=== PATIENT | female | born 1985 | race Caucasian/White ===

== ENCOUNTER 2020-03-23 23:42 | Emergency (ER) | payer SELFPAY ==
[2020-03-24 01:00] LABS: Absolute Lymphocytes (CBC) 1.2 K/uL (0.7-4.9); Basophils % 0.3 % (0-1.3); Hematocrit 41.7 % (36.0-45.0); RBC Red Blood Cell Count 4.77 M/uL (3.86-4.86)
[2020-03-24] MEDS ORDERED: ONDANSETRON 4 MG/2 ML VIAL ONE (01:04)
[2020-03-24] MEDS ORDERED: NA CHLORIDE 0.9% 1,000 ML ONE (01:04)
[2020-03-24 01:11] LABS: Urine Blood 2+ (NEG); Urine Glucose NEGATIVE (NEG); Urine Protein NEGATIVE (NEG); Urine Specific Gravity >1.030 (1.005-1.030); Urine pH 5.5 (5.0-7.0)
[2020-03-24 01:38] LABS: BUN Blood Urea Nitrogen 9 mg/dL (7-18); Bicarbonate 28 mmol/L (21-32); Glucose Level 122 mg/dL (74-106); HCG, Quantitative 5574 mIU/mL (1-3); Potassium 3.7 mmol/L (3.5-5.1); Sodium Level 138 mmol/L (136-145)
--- NOTE | 2020-03-24 02:18 | EDPHYS ---
Physician Documentation [facility] Name: Patito De La Rosa Age: 34 yrs Sex: Female : 1985 Arrival Date: 03/23/2020 Time: 23:44 Bed 5 Private MD: ED Physician Yoel Moran HPI: 03/24 00:50 This 34 yrs old Female presents to ER via Ambulatory with complaints of pkl Abdominal Pain, Vomiting. 00:50 The patient presents with pelvic pain, vaginal bleeding that is with clots. Onset: The pkl symptoms/episode began/occurred 4 day(s) ago. Patient said her menstrual periods came about 10 days early . HAND STEMMER: 00:17 LMP 03/24/2020 sg 00:50 2, Full Term 0, Premature 0, 1, Living 0, LMP 03/20/2020 pkl Historical: - Allergies: 00:17 Benadryl; sg 00:17 benitez flavor; sg 00:17 Iodine; sg 00:17 Latex, Natural Rubber; sg 00:17 PENICILLINS; sg 00:17 SHELLFISH; sg - Home Meds: 00:30 None [Active]; lp1 - PMHx: 00:17 Migraines; sg - PSHx: 00:17 None; sg - Immunization history:: Adult Immunizations up to date. - Social history:: Smoking status: Patient denies any tobacco usage or history of. ROS: 00:50 Positive for pelvic pain, vaginal bleeding. pkl 00:50 Eyes: Negative for injury, pain, redness, and discharge, ENT: Negative for injury, pain, and discharge, Neck: Negative for injury, pain, and swelling, Cardiovascular: Negative for chest pain, palpitations, and edema, Respiratory: Negative for shortness of breath, cough, wheezing, and pleuritic chest pain. 00:50 Abdomen/GI: Positive for abdominal pain, of the right lower quadrant and left lower quadrant. 00:50 Back: Negative for acute changes. 00:50 MS/extremity: Negative for acute changes. 00:50 Skin: Negative for rash. 00:50 Neuro: Negative for altered mental status. Exam: 02:10 Head/Face: Normocephalic, atraumatic. Eyes: Pupils equal round and reactive to light, pkl extra-ocular motions intact. Lids and lashes normal. Conjunctiva and sclera are non-icteric and not injected. Cornea within normal limits. Periorbital areas with no swelling, redness, or edema. ENT: Nares patent. No nasal discharge, no septal abnormalities noted. Tympanic membranes are normal and external auditory canals are clear. Oropharynx with no redness, swelling, or masses, exudates, or evidence of obstruction, uvula midline. Mucous membranes moist. Neck: Trachea midline, no thyromegaly or masses palpated, and no cervical lymphadenopathy. Supple, full range of motion without nuchal rigidity, or vertebral point tenderness. No Meningismus. Chest/axilla: Normal chest wall appearance and motion. Nontender with no deformity. No lesions are appreciated. Cardiovascular: Regular rate and rhythm with a normal S1 and S2. No gallops, murmurs, or rubs. Normal PMI, no JVD. No pulse deficits. Respiratory: Lungs have equal breath sounds bilaterally, clear to auscultation and percussion. No rales, rhonchi or wheezes noted. No increased work of breathing, no retractions or nasal flaring. Abdomen/GI: Soft, non-tender, with normal bowel sounds. No distension or tympany. No guarding or rebound. No evidence of tenderness throughout. Back: No spinal tenderness. No costovertebral tenderness. Full range of motion. Skin: Warm, dry with normal turgor. Normal color with no rashes, no lesions, and no evidence of cellulitis. MS/ Extremity: Pulses equal, no cyanosis. Neurovascular intact. Full, normal range of motion. Neuro: Awake and alert, GCS 15, oriented to person, place, time, and situation. Cranial nerves II-XII grossly intact. Motor strength 5/5 in all extremities. Sensory grossly intact. Cerebellar exam normal. Normal gait. 02:10 : Pelvic Exam: Speculum exam: scant bleeding, os that is open, the nurse was present for the exam. Vital Signs: 00:17 BP 120 / 90; Pulse 77; Resp 18; Temp 97.9; Pulse Ox 100% on R/A; sg 00:51 Weight 72.57 kg (R); Height 5 ft. 11 in. (180.34 cm); lp1 01:24 BP 111 / 70; Pulse 55; Resp 16; Pulse Ox 100% on R/A; ea 02:17 BP 126 / 83; Pulse 60; Resp 18; Pulse Ox 99% ; ea 00:51 Body Mass Index 22.32 (72.57 kg, 180.34 cm) lp1 MDM: 00:11 Patient medically screened. pkl 02:10 Data reviewed: vital signs, nurses notes. ED course: Discussed lab. and US results with pkl patient. Advised to follow up with Ob-Performance Analyst. in 2 to 3 days.. To return if necessary. Patient understood instructions. 03/24 00:17 Order name: Urine Dipstick--Ancillary (enter results); Complete Time: :56 sg 03/24 00:17 Order name: Urine --Ancillary (enter results); Complete Time: :56 sg 03/24 00:33 Order name: Quantitative Hcg; Complete Time: :56 lp1 03/24 00:33 Order name: Abo/rh Typing; Complete Time: 01:56 lp1 03/24 00:33 Order name: Basic Metabolic Panel; Complete Time: :56 lp1 03/24 00:33 Order name: CBC with Diff; Complete Time: :56 lp1 03/24 00:33 Order name: IV Saline Lock; Complete Time: 00:34 lp1 03/24 00:33 Order name: Labs collected and sent; Complete Time: 00:34 lp1 03/24 00:33 Order name: NPO; Complete Time: 00:34 lp1 03/24 00:33 Order name: US Transvaginal Ob lp1 Administered Medications: 01:03 Drug: NS 0.9% 500 ml Volume: 500 ml; Route: IV; Rate: 1 bolus; Site: right antecubital; ea 02:18 Follow up: Response: No adverse reaction; IV Status: Completed infusion; IV Intake: ea 500ml 02:25 Follow up: Response: No adverse reaction; IV Status: Completed infusion; IV Intake: ea 500ml 01:04 Drug: NS 0.9% 1000 ml Route: IV; Rate: 100 ml/hr; Site: right antecubital; ea 02:25 Follow up: Response: No adverse reaction; IV Status: Completed infusion; IV Intake: ea 100ml 01:04 Drug: Zofran (Ondansetron) 4 mg Route: IVP; Site: right antecubital; ea 02:18 Follow up: Response: No adverse reaction ea Disposition: 03/24/20 02:17 Discharged to Home. Impression: 1 st trimester . Vaginal bleeding. - Condition is Stable. - Work release form, Medication Reconciliation Form, Thank You Letter, Antibiotic Education, Prescription Opioid Use form. - Follow up: Private Physician; When: 2 - 3 days; Reason: Re-evaluation by your physician. - Problem is new. - Symptoms have improved. Signatures: Dispatcher [employer] EDNikos Oneal RN RN Yoel Kim MD MD pkl Keyona Mendez RN RN lp1 April Dominguez RN RN ea Corrections: (The following items were deleted from the chart) 02:25 02:17 03/24/2020 02:17 Discharged to Home. Impression: 1 st trimester . ea Vaginal bleeding. Condition is Stable. Forms are Medication Reconciliation Form, Thank You Letter, Antibiotic Education, Prescription Opioid Use. Follow up: Private Physician; When: 2 - 3 days; Reason: Re-evaluation by your physician. Problem is new. Symptoms have improved. pkl
--- NOTE | 2020-03-24 02:18 | ER ---
Nurse's Notes [facility] Name: Patito De La Rosa Age: 34 yrs Sex: Female : 1985 Arrival Date: 03/23/2020 Time: 23:44 Bed 5 Private MD: Diagnosis: 1 st trimester . Vaginal bleeding Presentation: 03/24 00:15 Chief complaint: Patient states: Abd pain and nausea and vomiting, denies sg FEVER/DIARRHEA, reports worsening symptoms today, also reports having vaginal bleeding, reports menstruating a week earlier than normal, with heavy flow. Coronavirus screen: Proceed with normal triage. Ebola Screen: Patient negative for fever greater than or equal to 101.5 degrees Fahrenheit, and additional compatible Ebola Virus Disease symptoms Patient denies exposure to infectious person. Patient denies travel to an Ebola-affected area in the 21 days before illness onset. No symptoms or risks identified at this time. Initial Sepsis Screen: Does the patient meet any 2 criteria? No. Patient's initial sepsis screen is negative. Does the patient have a suspected source of infection? No. Patient's initial sepsis screen is negative. Risk Assessment: Do you want to hurt yourself or someone else? Patient reports no desire to harm self or others. Onset of symptoms was March 24, 2020. Care prior to arrival: None. 00:15 Method Of Arrival: Ambulatory sg 00:15 Acuity: RYLEY 3 sg 00:26 Chief complaint: Patient states: Lower pelvic pain x 3 days with heavy vaginal bleeding lp1 with clots; States vomiting when pain is severe; States not normal for her menstrual cycle. Coronavirus screen: Proceed with normal triage. Ebola Screen: No symptoms or risks identified at this time. Initial Sepsis Screen: Does the patient meet any 2 criteria? No. Patient's initial sepsis screen is negative. Does the patient have a suspected source of infection? No. Patient's initial sepsis screen is negative. Risk Assessment: Do you want to hurt yourself or someone else? Patient reports no desire to harm self or others. Onset of symptoms was March 20, 2020. 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 - Social history:: Smoking status: Patient denies any tobacco usage or history of. Screenin:28 Abuse screen: Denies threats or abuse. Denies injuries from another. Nutritional lp1 screening: No deficits noted. Tuberculosis screening: No symptoms or risk factors identified. Fall Risk None identified. Assessment: 01:11 General: Appears in no apparent distress. Behavior is appropriate for age. Pain: ea Complains of pain in left lower quadrant and right lower quadrant. Neuro: Level of Consciousness is awake, alert, obeys commands, Oriented to person, place, time. Cardiovascular: Patient's skin is warm and dry. Respiratory: Airway is patent Respiratory effort is even, unlabored, Respiratory pattern is regular, symmetrical. GI: Abdomen is non-distended. Derm: Skin is pink, warm \T\ dry. 02:24 Reassessment: Patient and/or family updated on plan of care and expected duration. Pain ea level reassessed. Patient is alert, oriented x 3, equal unlabored respirations, skin warm/dry/pink. Discharge instruction given to patient, verbalized the understanding of instruction. Vital Signs: 00:17 BP 120 / 90; Pulse 77; Resp 18; Temp 97.9; Pulse Ox 100% on R/A; sg 00:51 Weight 72.57 kg (R); Height 5 ft. 11 in. (180.34 cm); lp1 01:24 BP 111 / 70; Pulse 55; Resp 16; Pulse Ox 100% on R/A; ea 02:17 BP 126 / 83; Pulse 60; Resp 18; Pulse Ox 99% ; ea 00:51 Body Mass Index 22.32 (72.57 kg, 180.34 cm) lp1 ED Course: 03/23 23:44 Patient arrived in ED. cf2 03/24 00:11 Yoel Moran MD is Attending Physician. pkl 00:15 Nikos Weaver, RN is Primary Nurse. sg 00:17 Arm band placed on. sg 00:28 Triage completed. lp1 00:30 Patient has correct armband on for positive identification. lp1 00:45 Inserted saline lock: 20 gauge in right antecubital area, using aseptic technique. lp1 Blood collected. 02:00 Assist provider with pelvic exam: Set up pelvic tray. Performed by Yoel Moran MD Patient lp1 tolerated well. 02:01 US Transvaginal Ob In Process Unspecified. EDMS 02:24 IV discontinued, intact, bleeding controlled, No redness/swelling at site. Pressure ea dressing applied. Administered Medications: 01:03 Drug: NS 0.9% 500 ml Volume: 500 ml; Route: IV; Rate: 1 bolus; Site: right antecubital; ea 02:18 Follow up: Response: No adverse reaction; IV Status: Completed infusion; IV Intake: ea 500ml 02:25 Follow up: Response: No adverse reaction; IV Status: Completed infusion; IV Intake: ea 500ml 01:04 Drug: NS 0.9% 1000 ml Route: IV; Rate: 100 ml/hr; Site: right antecubital; ea 02:25 Follow up: Response: No adverse reaction; IV Status: Completed infusion; IV Intake: ea 100ml 01:04 Drug: Zofran (Ondansetron) 4 mg Route: IVP; Site: right antecubital; ea 02:18 Follow up: Response: No adverse reaction ea Intake: 02:18 IV: 500ml; Total: 500ml. ea 02:25 IV: 100ml; Total: 600ml. ea 02:25 IV: 500ml; Total: 1100ml. ea Outcome: 02:17 Discharge ordered by . pkaundrea 02:24 Discharged to home ambulatory. ea 02:24 Condition: stable 02:24 Discharge instructions given to patient, Instructed on discharge instructions, follow up and referral plans. Demonstrated understanding of instructions, follow-up care. 02:25 Patient left the ED. ea Signatures: Dispatcher [employer] EDMS Nikos Weaver, RN Yoel Rodriguez MD MD pkl Pena, Laura, RN RN lp1 April Dominguez RN RN ea Frazier, Celesta 2 Corrections: (The following items were deleted from the chart) 00:38 00:15 Chief complaint: Patient states: Abd pain and nausea and vomiting, denies sg FEVER/DIARRHEA, reports worsening symptoms today sg
[2020-03-24 02:52] VITALS: TEMP 97.9
[2020-03-24 02:53] VITALS: BP 126/83; O2SAT 99
--- NOTE | 2020-03-24 17:23 | RAD REPORT ---
EXAM DESCRIPTION: US - Transvaginal OB - 03/24/2020 2:29 am CLINICAL HISTORY: The patient is 34 years old and is Female; VAGINAL BLEEDING TECHNIQUE: Real-time transvaginal obstetrical ultrasound of the maternal pelvis and a first trimeste r with image documentation. Transvaginal imaging was used for better evaluation of the fe tus and adnexa. COMPARISON: No relevant prior studies available. FINDINGS: GESTATION: There is no evidence of an intrauterine . PLACENTA/AMNIOTIC FLUID: Cannot be adequately evaluated due to the early gestational age. UTERUS/CERVIX: Unremarkable. No myometrial mass. OVARIES: Unremarkable. No mass. FREE FLUID: No free fluid. IMPRESSION: No evidence of an intrauterine . Findings suggest a of unknown locat ion. Recommend continued follow-up with serial hCG and ultrasound. Electronically signed by: Aparna Lynn MD 03/24/2020 3:01 AM CDT Due to temporary technical issues with the PACS/Fluency reporting system, reports are being signed by the in house radiologist as a courtesy to ensure prompt reporting. The interpreting radiologist is f ully responsible for the content of the report.
== END 2020-03-24 02:25 | disposition home or self-care (01) ==
LOC: ER 23:42
DX: O46.91 Antepartum hemorrhage, unspecified, first trimester (principal); Z3A.00 Weeks of gestation of pregnancy not specified; Z88.0 Allergy status to penicillin; Z91.02 Food additives allergy status; Z91.013 Allergy to seafood; Z91.040 Latex allergy status; Z91.048 Other nonmedicinal substance allergy status
CPT/HCPCS: 36415; 76817; 80048; 81003; 81025; 84702; 85025; 86900; 86901; 96361; 96374; 99284; J2405; J7030

== ENCOUNTER 2024-03-04 06:45 | Emergency (ER) | payer BC ==
[2024-03-04] MEDS ORDERED: ONDANSETRON 4 MG/2 ML VIAL ONE (07:27)
[2024-03-04] MEDS ORDERED: NA CHLORIDE 0.9% 1,000 ML ONE (07:28)
[2024-03-04] MEDS ORDERED: MORPHINE 4 MG/ML SYR ONE (07:28)
[2024-03-04 07:30] LABS: Absolute Eosinophils 0.2 K/uL (0-0.5); Absolute Lymphocytes (CBC) 1.9 K/uL (0.7-4.9); Absolute Monocytes 0.6 K/uL (0.1-1.3); Absolute Neutrophil 3.6 K/uL (1.8-8.0); Basophils % 0.5 % (0-1.3); Eosinophils % 3.2 % (0-4.4); Hematocrit 37.5 % (36.0-45.0); Hemoglobin 12.7 g/dL (12.0-15.0); Lymphocytes % 29.6 % (15.3-44.8); MCHC 33.9 g/dL (32.0-36.0); MCV 85.4 fL (80-100); Monocytes % 10.1 % (3.3-12.3); Neutrophils % 56.6 % (41.7-73.7); Nucleated Red Blood Cells % 0.1 % (0-0); Platelets 267 thou/uL (152-406); RBC Red Blood Cell Count 4.39 M/uL (3.86-4.86); Red Cell Distribution Width 12.9 % (12.1-15.2)
[2024-03-04 07:47] LABS: Albumin 3.5 g/dL (3.4-5.0); Albumin/Globulin Ratio 0.9 (1.1-1.8); Anion Gap 4.6 mEq/L (5.0-15.0); Bilirubin Total 0.2 mg/dL (0.2-1.0); Globulin 3.9 g/dL (2.3-3.5); Potassium 3.6 mEq/L (3.5-5.1); Protein, Total 7.4 g/dL (6.4-8.2)
[2024-03-04 07:56] LABS: Specific Gravity 1.023 (1.005-1.030)
[2024-03-04 07:57] LABS: Specific Gravity 1.023 (1.005-1.030); Sqamous Epithelial <5 /HPF (None Seen); Urine Bacteria <20 /HPF (<20); Urine Bilirubin NEGATIVE (Negative); Urine Blood 2+ (Negative); Urine Clarity Extremely Turbid (Clear); Urine Color Light-Yellow (Yellow); Urine Culture Reflex Order NOT NEEDED; Urine Glucose NEGATIVE (Negative); Urine Ketones NEGATIVE (Negative); Urine Microscopic Reflex YN ORDER UMIC; Urine Mucus 2+ /HPF (None Seen); Urine Nitrite NEGATIVE (Negative); Urine Protein NEGATIVE (Negative); Urine RBC 21-50 /HPF (None Seen); Urine Urobilinogen Normal (Normal); Urine WBC <5 /HPF (<5); Urine pH 6.5 (5.0-7.0)
--- NOTE | 2024-03-04 08:55 | RAD REPORT ---
EXAM DESCRIPTION: CT - Abdomen Pelvis Wo Contrast - 03/04/2024 8:00 am CLINICAL HISTORY: ABD PAIN COMPARISON: Abdomen Pelvis Wo Contrast dated 05/27/2016 TECHNIQUE: Thin cut axial CT imaging of the abdomen and pelvis was performed without IV contrast. Mu ltiplanar reformats were generated and reviewed. All CT scans are performed using dose optimization technique as appropriate and may include automated exposure control or mA/KV adjustment according to patient size. FINDINGS: No suspicious findings in the lung bases. The liver, spleen, adrenal glands, and pancreas show no suspicious findings. Gallbladder and biliary tree are also without suspicious finding. Symmetric renal contour, without suspicious parenchymal findings within limits of noncontrast techniq ue. No evidence of radiopaque calculi or hydroureteronephrosis. No dilated bowel loops or bowel wall thickening. No free air, free fluid or inflammatory stranding. N o hernia, mass or bulky lymphadenopathy. Uterus is retroverted. The urinary bladder is decompressed l imiting evaluation. No suspicious bony findings. IMPRESSION: No acute intra-abdominal process. Retroverted uterus.
--- NOTE | 2024-03-04 09:04 | EDPHYS ---
Physician Documentation [facility] Name: Patito Sims Age: 38 yrs Sex: Female : 1985 Arrival Date: 03/04/2024 Time: 06:45 Bed 5 Private MD: ED Physician Neema Foy HPI: 03/04 07:28 This 38 yrs old Female presents to ER via Ambulatory with complaints of Abdominal Pain, sp3 Constipation. 07:28 38-year-old female with a history of frequent UTIs, migraine headaches now presents to 3 the ED with chief complaint epigastric pain since late last night they got worse throughout the night. She has no past surgical history. She endorses vomiting multiple times especially this morning without blood or mucus. She denies diarrhea, potential bad food, back pain, flank pain, lower abdominal pain, BELT PRESS OPERATOR symptoms or any other signs or symptoms on ROS at this time.. Historical: - Allergies: 07:17 Benadryl; rs5 07:17 benitez flavor; rs5 07:17 Iodine; rs5 07:17 Latex; rs5 07:17 PENICILLINS; rs5 07:17 SHELLFISH; rs5 07:17 Latex, Natural Rubber; rs5 - PMHx: 07:17 Migraines; UTI (Migraines); rs5 - PSHx: 07:17 None; rs5 - Immunization history:: Adult Immunizations up to date. - Infectious Disease History:: Denies. - Social history:: Smoking status: Patient denies any tobacco usage or history of. ROS: 07:29 Constitutional: Negative for fever, chills, and weight loss, Eyes: Negative for injury, sp3 pain, redness, and discharge, ENT: Negative for injury, pain, and discharge, Neck: Negative for injury, pain, and swelling, Cardiovascular: Negative for chest pain, palpitations, and edema, Respiratory: Negative for shortness of breath, cough, wheezing, and pleuritic chest pain, Back: Negative for injury and pain, : Negative for injury, bleeding, discharge, and swelling, MS/Extremity: Negative for injury and deformity, Skin: Negative for injury, rash, and discoloration, Neuro: Negative for headache, weakness, numbness, tingling, and seizure, Psych: Negative for depression, anxiety, suicide ideation, homicidal ideation, and hallucinations, Allergy/Immunology: Negative for hives, rash, and allergies, Endocrine: Negative for neck swelling, polydipsia, polyuria, polyphagia, and marked weight changes, 07:29 All other systems are negative, Exam: 07:29 Constitutional: This is a well developed, well nourished patient who is awake, alert, sp3 and in no acute distress. Head/Face: Normocephalic, atraumatic. Eyes: Pupils equal round and reactive to light, extra-ocular motions intact. Lids and lashes normal. Conjunctiva and sclera are non-icteric and not injected. Cornea within normal limits. Periorbital areas with no swelling, redness, or edema. ENT: Nares patent. No nasal discharge, no septal abnormalities noted. External auditory canals are clear. Oropharynx with no redness, swelling, or masses, exudates, or evidence of obstruction, uvula midline. Mucous membranes moist. Neck: Trachea midline, no thyromegaly or masses palpated, and no cervical lymphadenopathy. Supple, full range of motion without nuchal rigidity, or vertebral point tenderness. No Meningismus. Chest/axilla: Normal chest wall appearance and motion. Nontender with no deformity. No lesions are appreciated. Cardiovascular: Regular rate and rhythm with a normal S1 and S2. No gallops, murmurs, or rubs. Normal PMI, no JVD. No pulse deficits. Respiratory: Lungs have equal breath sounds bilaterally, clear to auscultation and percussion. No rales, rhonchi or wheezes noted. No increased work of breathing, no retractions or nasal flaring. Back: No spinal tenderness. No costovertebral tenderness. Full range of motion. Skin: Warm, dry with normal turgor. Normal color with no rashes, no lesions, and no evidence of cellulitis. MS/ Extremity: Pulses equal, no cyanosis. Neurovascular intact. Full, normal range of motion. Neuro: Awake and alert, GCS 15, oriented to person, place, time, and situation. Cranial nerves II-XII grossly intact. Motor strength 5/5 in all extremities. Sensory grossly intact. Cerebellar exam normal. Normal gait. Psych: Awake, alert, with orientation to person, place and time. Behavior, mood, and affect are within normal limits. 07:29 Abdomen/GI: Pain epigastric region and right upper quadrant. No rebound or guarding or peritoneal signs noted., Vital Signs: 07:00 BP 133 / 87; Pulse 70; Resp 18; Temp 98(O); Pulse Ox 99% ; rs5 07:54 BP 140 / 91; Pulse 72; Resp 18; Pulse Ox 99% on R/A; rs5 09:20 BP 135 / 88; Pulse 75; Resp 18; Pulse Ox 99% on R/A; rs5 MDM: 07:10 Patient medically screened. sp3 07:29 Data reviewed: vital signs, nurses notes, old medical records, lab test result(s), sp3 radiologic studies. ED course: 38-year-old female with epigastric pain. Differential diagnosis includes biliary pathology, pancreatitis, gastritis, GERD, MSK, among others. I am not highly suspicious for ACS spectrum, vascular pathology, sepsis, shock or any other critical process at this time. Disposition pending workup and patient course. Workup will include CT scan of the abdomen pelvis, laboratory values, UA and pain and nausea control with morphine and Zofran.. 09:02 ED course: Full workup negative including CT scan of the abdomen pelvis. Will safely sp3 discharged home with diagnosis gastritis and OTC meds along with Zofran ODT.. 03/04 07:19 Order name: CBC with Diff; Complete Time: 07:59 sp3 03/04 07:19 Order name: CMP; Complete Time: 07:59 sp3 03/04 07:19 Order name: Lipase; Complete Time: 07:59 sp3 03/04 07:19 Order name: Test, Urine; Complete Time: 07:59 sp3 03/04 07:19 Order name: Urinalysis w/ reflexes; Complete Time: 07:59 sp3 03/04 07:58 Order name: Abdomen ; Complete Time: 09:00 EDMS 03/04 07:19 Order name: IV Saline Lock; Complete Time: 07:45 sp3 03/04 07:19 Order name: Labs collected and sent; Complete Time: 07:45 sp3 Administered Medications: 07:25 Drug: NS 0.9% IV 1000 ml IV at 1 bolus Per protocol; 1000 mL bolus Route: IV; Rate: 1 rs5 bolus; Site: left antecubital; 09:00 Follow up: Response: No adverse reaction; IV Status: Completed infusion rs5 07:25 Drug: Ondansetron IVP 4 mg IVP once; over 2 minutes Route: IVP; Site: left antecubital; rs5 08:00 Follow up: Response: No adverse reaction rs5 07:30 Drug: morphine IVP or IV 4 mg IVP once over 4 mins Route: IVP; Infused Over: 4 mins; rs5 Site: left antecubital; 08:00 Follow up: Response: No adverse reaction; Pain is decreased rs5 09:10 Drug: morphine IVP or IV 2 mg IVP once over 4 mins Route: IVP; Infused Over: 4 mins; rs5 Site: left antecubital; 09:22 Follow up: Response: No adverse reaction; Pain is decreased rs5 Disposition Summary: 03/04/24 09:03 Discharge Ordered Notes: Location: Home sp3 Condition: Stable sp3 Diagnosis - Gastritis, abdominal pain sp3 Followup: sp3 - With: Private Physician - When: Upon discharge from the Emergency Department - Reason: Continuance of care Discharge Instructions: - Discharge Summary Sheet sp3 - Abdominal Pain, Adult sp3 Forms: - Medication Reconciliation Form sp3 - Thank You Letter sp3 - Antibiotic Education sp3 - Prescription Opioid Use sp3 - Patient Portal Instructions sp3 - Leadership Thank You Letter sp3 Prescriptions: - Zofran 4 mg Oral Tablet - take 1 tablet ORAL route every 12 hours As needed; 20 tablet; Refills: 0, sp3 Product Selection Permitted Signatures: Dispatcher [employer] EDMS Neema Foy MD MD sp3 Ezequiel Travis RN RN rs5 Corrections: (The following items were deleted from the chart) 07:58 07:19 Abdomen Pelvis W Con+CT.[id number].[id number] ordered. EDMS EDMS
--- NOTE | 2024-03-04 09:04 | ER ---
Nurse's Notes [facility] Name: Patito Sims Age: 38 yrs Sex: Female : 1985 Arrival Date: 03/04/2024 Time: 06:45 Bed 5 Private MD: Diagnosis: Gastritis, abdominal pain Presentation: 03/04 07:00 Chief complaint: Patient states: Abdominal pain started yesterday morning unrelieved by rs5 tums. 07:00 Coronavirus screen: At this time, the client does not indicate any symptoms associated rs5 with coronavirus-19. Ebola Screen: No symptoms or risks identified at this time. Initial Sepsis Screen: Does the patient meet any 2 criteria? No. Patient's initial sepsis screen is negative. Does the patient have a suspected source of infection? No. Patient's initial sepsis screen is negative. Risk Assessment: Do you want to hurt yourself or someone else? Patient reports no desire to harm self or others. Onset of symptoms was March 04, 2024. 07:00 Method Of Arrival: Ambulatory rs5 07:00 Acuity: RYLEY 3 rs5 Historical: - Allergies: 07:17 Benadryl; rs5 07:17 benitez flavor; rs5 07:17 Iodine; rs5 07:17 Latex; rs5 07:17 PENICILLINS; rs5 07:17 SHELLFISH; rs5 07:17 Latex, Natural Rubber; rs5 - PMHx: 07:17 Migraines; UTI (Migraines); rs5 - PSHx: 07:17 None; rs5 - Immunization history:: Adult Immunizations up to date. - Infectious Disease History:: Denies. - Social history:: Smoking status: Patient denies any tobacco usage or history of. Screenin:58 [facility] ED Fall Risk Assessment (Adult) History of falling in the last 3 months, rs5 including since admission No falls in past 3 months (0 pts) Confusion or Disorientation No (0 pts) Intoxicated or Sedated No (0 pts) Impaired Gait No (0 pts) Mobility Assist Device Used No (0 pt) Altered Elimination No (0 pt) Score/Fall Risk Level 0 - 2 = Low Risk Oriented to surroundings, Maintained a safe environment. 06:58 Abuse screen: Denies threats or abuse. Nutritional screening: No deficits noted. rs5 Tuberculosis screening: No symptoms or risk factors identified. Assessment: 06:58 General: Appears in no apparent distress. uncomfortable, Behavior is calm, cooperative. rs5 06:58 Pain: Complains of pain in abdomen Pain currently is 7 out of 10 on a pain scale. rs5 Quality of pain is described as aching, Is continuous. Neuro: Level of Consciousness is awake, alert, obeys commands, Oriented to person, place, time, situation. Cardiovascular: Patient's skin is warm and dry. Rhythm is regular. Respiratory: Airway is patent Respiratory effort is even, unlabored, Respiratory pattern is regular, symmetrical. GI: Abdomen is round non-distended, Bowel sounds present X 4 quads. Abd is soft and non tender X 4 quads. Reports nausea. : No signs and/or symptoms were reported regarding the genitourinary system. EENT: No signs and/or symptoms were reported regarding the EENT system. Derm: Skin is intact, Skin is pink, warm \T\ dry. Musculoskeletal: Range of motion: intact in all extremities. 08:05 Reassessment: Patient and/or family updated on plan of care and expected duration. Pain rs5 level reassessed. Patient is alert, oriented x 3, equal unlabored respirations, skin warm/dry/pink. Patient denies pain at this time. Patient states feeling better. Patient states symptoms have improved. 09:00 Pain: Complains of pain in abdomen Pain currently is 7 out of 10 on a pain scale. rs5 Quality of pain is described as aching, Is continuous. 09:00 Respiratory: Respiratory effort is even, unlabored, Respiratory pattern is regular, rs5 symmetrical. 09:01 Reassessment: Provider notified pt is experiencing pain . rs5 Vital Signs: 07:00 BP 133 / 87; Pulse 70; Resp 18; Temp 98(O); Pulse Ox 99% ; rs5 07:54 BP 140 / 91; Pulse 72; Resp 18; Pulse Ox 99% on R/A; rs5 09:20 BP 135 / 88; Pulse 75; Resp 18; Pulse Ox 99% on R/A; rs5 ED Course: 06:50 Patient arrived in ED. jj6 06:58 Patient has correct armband on for positive identification. Placed in gown. Bed in low rs5 position. Call light in reach. Side rails up X2. 06:58 No provider procedures requiring assistance completed. rs5 07:02 Ezequiel Travis, RN is Primary Nurse. rs5 07:09 Neema Foy MD is Attending Physician. sp3 07:17 Triage completed. rs5 07:58 Abdomen In Process Unspecified. EDMS 09:20 IV discontinued, intact, bleeding controlled, No redness/swelling at site. Pressure rs5 dressing applied. Administered Medications: 07:25 Drug: NS 0.9% IV 1000 ml IV at 1 bolus Per protocol; 1000 mL bolus Route: IV; Rate: 1 rs5 bolus; Site: left antecubital; 09:00 Follow up: Response: No adverse reaction; IV Status: Completed infusion rs5 07:25 Drug: Ondansetron IVP 4 mg IVP once; over 2 minutes Route: IVP; Site: left antecubital; rs5 08:00 Follow up: Response: No adverse reaction rs5 07:30 Drug: morphine IVP or IV 4 mg IVP once over 4 mins Route: IVP; Infused Over: 4 mins; rs5 Site: left antecubital; 08:00 Follow up: Response: No adverse reaction; Pain is decreased rs5 09:10 Drug: morphine IVP or IV 2 mg IVP once over 4 mins Route: IVP; Infused Over: 4 mins; rs5 Site: left antecubital; 09:22 Follow up: Response: No adverse reaction; Pain is decreased rs5 Medication: 07:54 VIS not applicable for this client. rs5 Outcome: 09:03 Discharge ordered by . sp3 09:20 Discharged to home ambulatory, rs5 09:20 Condition: stable 09:20 Discharge instructions given to patient, family, Instructed on discharge instructions, follow up and referral plans. medication usage, Demonstrated understanding of instructions, follow-up care, medications, Prescriptions given X 1, 09:22 Patient left the ED. rs5 Signatures: Dispatcher [employer] EDMS Neema Foy MD MD sp3 Myesha Colvinj6 Ezequiel Travis, RN RN rs5 Corrections: (The following items were deleted from the chart) 09:42 08:00 Response: No adverse reaction; Pain is decreased rs5 rs5
[2024-03-04] MEDS ORDERED: MORPHINE 2 MG/ML SYR ONE (09:12)
[2024-03-04 11:08] VITALS: BP 140/91; TEMP 98; O2SAT 99
== END 2024-03-04 09:22 | disposition home or self-care (01) ==
LOC: ER 06:45
DX: K29.70 Gastritis, unspecified, without bleeding (principal); Z88.0 Allergy status to penicillin; Z88.8 Allergy status to other drugs, medicaments and biological substances; Z91.02 Food additives allergy status; Z91.013 Allergy to seafood; Z91.040 Latex allergy status
CPT/HCPCS: 96361; 85025; 81001; 36415; 81025; 83690; 80053; 74176; 96375; 96374; 99284; J2270; J2405; J7030

== ENCOUNTER 2024-03-06 12:41 | Inpatient (IN) | payer BC ==
[2024-03-06] MEDS ORDERED: FAMOTIDINE 20 MG/2 ML VIAL IV ONE (14:33)
[2024-03-06] MEDS ORDERED: LIDOCAINE VISCOUS 2% 10ML ORAL SOLN ONE (14:33)
[2024-03-06] MEDS ORDERED: MAGNES/ALUMIN/SIMET 30ML UCUP ONE (14:33)
[2024-03-06] MEDS ORDERED: NA CHLORIDE 0.9% 1,000 ML ONE (14:33)
[2024-03-06 14:59] LABS: Absolute Lymphocytes (CBC) 1.3 K/uL (0.7-4.9); Absolute Monocytes 1.6 K/uL (0.1-1.3); Absolute Neutrophil 12.1 K/uL (1.8-8.0); Basophils % 0.3 % (0-1.3); Eosinophils % 0.2 % (0-4.4); Hematocrit 39.7 % (36.0-45.0); Hemoglobin 12.9 g/dL (12.0-15.0); Lymphocytes % 8.7 % (15.3-44.8); MCH 28.2 pg (27.0-35.0); MCHC 32.4 g/dL (32.0-36.0); MCV 87.1 fL (80-100); MPV 7.5 fL (7.6-11.3); Monocytes % 10.7 % (3.3-12.3); Neutrophils % 80.1 % (41.7-73.7); Platelets 250 thou/uL (152-406); RBC Red Blood Cell Count 4.56 M/uL (3.86-4.86); Red Cell Distribution Width 13.3 % (12.1-15.2)
[2024-03-06 15:05] LABS: Specific Gravity 1.016 (1.005-1.030); Sqamous Epithelial <5 /HPF (None Seen); Urine Bacteria <20 /HPF (<20); Urine Bilirubin NEGATIVE (Negative); Urine Blood 3+ (Negative); Urine Clarity Extremely Turbid (Clear); Urine Color Yellow (Yellow); Urine Culture Reflex Order NOT NEEDED; Urine Glucose NEGATIVE (Negative); Urine Ketones 2+ (Negative); Urine Microscopic Reflex YN ORDER UMIC; Urine Mucus 4+ /HPF (None Seen); Urine Nitrite NEGATIVE (Negative); Urine Protein 1+ (Negative); Urine RBC 21-50 /HPF (None Seen); Urine Urobilinogen Normal (Normal); Urine WBC <5 /HPF (<5); Urine pH 6.5 (5.0-7.0)
[2024-03-06 15:14] LABS: Anion Gap 5.6 mEq/L (5.0-15.0); Potassium 3.6 mEq/L (3.5-5.1)
[2024-03-06] MEDS ORDERED: ONDANSETRON 4 MG/2 ML VIAL ONE (15:26)
[2024-03-06] MEDS ORDERED: MORPHINE 4 MG/ML SYR ONE (15:26)
[2024-03-06 15:42] LABS: Albumin 3.8 g/dL (3.4-5.0); Albumin/Globulin Ratio 0.9 (1.1-1.8); Bilirubin Direct 0.2 mg/dL (0-0.2); Bilirubin Indirect, Calculated 0.4 mg/dL (0.2-0.8); Bilirubin Total 0.6 mg/dL (0.2-1.0); Globulin 4.4 g/dL (2.3-3.5); Protein, Total 8.2 g/dL (6.4-8.2)
--- NOTE | 2024-03-06 16:18 | RAD REPORT ---
EXAM DESCRIPTION: US - Abdomen Exam Limited - 03/06/2024 3:52 pm CLINICAL HISTORY: epigastric/RUQ pain;Abd pain COMPARISON: Abdomen Pelvis Wo Contrast dated 03/04/2024 FINDINGS: Cholelithiasis present. Gallbladder wall thickening. Pericholecystic edema. Positive sonog raphic Hood sign. Common bile duct measures 5 millimeters which is within normal limits. The liver demonstrates no findings of intrahepatic biliary dilatation. IMPRESSION: Sonographic findings compatible with acute calculus cholecystitis. Common bile duct is n ormal caliber.
[2024-03-06] MEDS ORDERED: PROMETHAZINE INJ 25 MG/ML AMP ONE (16:54)
[2024-03-06] MEDS ORDERED: HYDROMORPHONE HCL 0.5 MG/0.5 ML INJ ONE (16:54)
[2024-03-06] MEDS ORDERED: METRONIDAZOLE 500mg IVPB 500 MG/100 ML BAG IV ONE (16:55)
[2024-03-06] MEDS ORDERED: CIPROFLOXACIN 400mg IV 400 MG/200 ML BAG IV ONE (16:55)
--- NOTE | 2024-03-06 17:03 | ER ---
Nurse's Notes [facility] Name: Patito Sims Age: 38 yrs Sex: Female : 1985 Arrival Date: 03/06/2024 Time: 12:41 Bed 9 Private MD: Diagnosis: Acute cholecystitis Presentation: 03/06 12:49 Chief complaint: Patient states: Still having severe abdominal pain since Thursday. ll1 Liquid diarrhea started yesterday. No fever. Coronavirus screen: Client denies travel out of the [place] in the last 14 days. At this time, the client does not indicate any symptoms associated with coronavirus-19. Ebola Screen: Patient denies travel to an Ebola-affected area in the 21 days before illness onset. Initial Sepsis Screen: Does the patient meet any 2 criteria? No. Patient's initial sepsis screen is negative. Does the patient have a suspected source of infection? No. Patient's initial sepsis screen is negative. Risk Assessment: Do you want to hurt yourself or someone else? Patient reports no desire to harm self or others. Onset of symptoms was March 04, 2024. 12:49 Method Of Arrival: Ambulatory ll1 12:49 Acuity: RYLEY 3 ll1 Triage Assessment: 12:52 General: Appears uncomfortable, Behavior is calm, cooperative, appropriate for age. ll1 Pain: Complains of pain in abdomen Pain currently is 9 out of 10 on a pain scale. Quality of pain is described as aching, heavy. GI: Reports lower abdominal pain, upper abdominal pain, diarrhea, no appetite. Historical: - Allergies: 12:49 Benadryl; ll1 12:49 benitez flavor; ll1 12:49 Iodine; ll1 12:49 Latex; ll1 12:49 PENICILLINS; ll1 12:49 SHELLFISH; ll1 - PMHx: 12:49 Migraines; UTI (Migraines); ll1 - Immunization history:: Adult Immunizations up to date. - Infectious Disease History:: Denies. Screenin:58 [facility] ED Fall Risk Assessment (Adult) History of falling in the last 3 months, ld2 including since admission No falls in past 3 months (0 pts) Confusion or Disorientation No (0 pts) Intoxicated or Sedated No (0 pts) Impaired Gait No (0 pts) Mobility Assist Device Used No (0 pt) Altered Elimination No (0 pt) Score/Fall Risk Level 0 - 2 = Low Risk Oriented to surroundings, Maintained a safe environment, Educated pt \T\ family on fall prevention, incl call for assistance when getting out of bed, Assessed \T\ reinforced patient's understanding of fall precautions, Provided non-skid footwear, Hourly rounding (assess needs \T\ fall precautionary measures) done, Used ambulatory aids as needed (educated on \T\ assisted with). Abuse screen: Denies threats or abuse. Denies injuries from another. Nutritional screening: No deficits noted. Tuberculosis screening: No symptoms or risk factors identified. Assessment: 14:55 Pain: Complains of pain in abdomen Pain currently is 10 out of 10 on a pain scale. ld2 Quality of pain is described as burning, crampy, Pain began 2-3 days ago. Is intermittent. Neuro: No deficits noted. Level of Consciousness is awake, alert, obeys commands, Oriented to person, place, time, situation. Cardiovascular: No deficits noted. Denies chest pain, Heart tones S1 S2 present Capillary refill < 3 seconds in bilateral fingers. Respiratory: Breath sounds are clear bilaterally. Denies shortness of breath. GI: Abdomen is flat, non-distended, Bowel sounds present X 4 quads. Abd is soft and non tender X 4 quads. Reports cramping, nausea, vomiting. : No deficits noted. No signs and/or symptoms were reported regarding the genitourinary system. Musculoskeletal: No deficits noted. No signs and/or symptoms reported regarding the musculoskeletal system. Vital Signs: 12:49 BP 131 / 90; Pulse 113; Resp 16; Temp 97.6; Pulse Ox 100% ; Weight 95.25 kg; Height 5 ll1 ft. 11 in. ; Pain 9/10; 15:32 BP 123 / 87; Pulse 89; Resp 18; Pulse Ox 100% on R/A; Pain 3/10; ld2 17:08 BP 126 / 84; Pulse 95; Resp 20; Pulse Ox 99% on R/A; Pain 1/10; ld2 12:49 Body Mass Index 29.29 (95.25 kg, 180.34 cm) ll1 12:49 Pain Scale: Adult ll1 15:32 Pain Scale: Adult ld2 17:08 Pain Scale: Adult ld2 [place] Coma Score: 15:32 Eye Response: spontaneous(4). Motor Response: obeys commands(6). Verbal Response: ld2 oriented(5). Total: 15. 17:08 Eye Response: spontaneous(4). Motor Response: obeys commands(6). Verbal Response: ld2 oriented(5). Total: 15. ED Course: 12:44 Patient arrived in ED. mr 12:46 Myesha Quiroz, MANAGER SHELL [facility] 12:46 Rigoberto Wang MD is Attending Physician. [facility] 12:50 Triage completed. ll1 12:50 Arm band placed on. ll1 14:26 Minda Lawton, RN is Primary Nurse. ph 14:55 CBC with Diff Sent. ld2 14:55 BMP Sent. ld2 14:55 Urinalysis w/ reflexes Sent. ld2 14:57 Patient has correct armband on for positive identification. Allergy band placed. Fall ld2 risk band placed. Placed in gown. Bed in low position. Call light in reach. Side rails up X 1. Door closed. Noise minimized. Warm blanket given. Verbal reassurance given. Family accompanied patient. 14:57 Inserted saline lock: 20 gauge in left antecubital area, using aseptic technique. Blood ld2 collected. 15:33 Liver (Hepatic) Function Sent. ld2 15:33 Lipase Sent. ld2 15:54 US Abdomen Limited In Process Unspecified. EDMS 17:02 Elkin Park MD is Hospitalizing Provider. [facility] Administered Medications: 14:55 Drug: NS 0.9% IV 1000 ml IV at 1 bolus Per protocol; 1000 mL bolus Route: IV; Rate: 1 ld2 bolus; Infused Over: 1 hrs; Site: right antecubital; 17:50 Follow up: IV Status: Completed infusion; IV Intake: 1000ml ld2 14:55 Drug: Famotidine IVP 20 mg IVP once; dilute with 10 mL 0.9% NaCl; give over 2 minutes ld2 Route: IVP; Infused Over: 5 mins; Site: right antecubital; 17:49 Follow up: Response: No adverse reaction; Marked relief of symptoms ld2 14:55 Drug: GI Cocktail without - (Maalox PO 30 ml, Lidocaine Mucous Membrane 2 % 15 ld2 ml) PO once Route: PO; 17:49 Follow up: Response: No adverse reaction; Marked relief of symptoms ld2 15:32 Drug: morphine IVP or IV 4 mg IVP once over 4 mins Route: IVP; Infused Over: 4 mins; ld2 Site: right antecubital; 17:48 Follow up: Response: No adverse reaction; Marked relief of symptoms ld2 15:32 Drug: Ondansetron IVP 4 mg IVP once; over 2 minutes Route: IVP; Infused Over: 2 mins; ld2 Site: right antecubital; 17:49 Follow up: Response: No adverse reaction; Marked relief of symptoms ld2 17:05 Drug: Promethazine IVP 12.5 mg IVP once Route: IVP; Infused Over: 30 mins; Site: right ld2 antecubital; 17:48 Follow up: Response: No adverse reaction; Marked relief of symptoms ld2 17:05 Drug: Ciprofloxacin IVPB 400 mg 200 ml IVPB once over 60 mins Volume: 200 ml; Route: ld2 IVPB; Infused Over: 60 mins; Site: right antecubital; 17:48 Follow up: Response: No adverse reaction; No change in condition; IV Status: Completed ld2 infusion 17:06 Drug: HYDROmorphone IVP 0.5 mg IVP once Route: IVP; Infused Over: 2 mins; Site: right ld2 antecubital; 17:48 Follow up: Response: No adverse reaction; Marked relief of symptoms ld2 17:47 Drug: metroNIDAZOLE IVPB 500 mg 100 ml IVPB at 200 ml/hr once over 30 mins Volume: 100 ld2 ml; Route: IVPB; Rate: 200 ml/hr; Infused Over: 30 mins; Site: right antecubital; Intake: 17:50 IV: 1000ml; Total: 1000ml. ld2 Outcome: 17:02 Decision to Hospitalize by Provider. Guru 18:20 Admitted to Med/surg accompanied by kelsey peacock 18:20 Condition: stable kb3 18:20 Instructed on the need for admit, 18:21 Patient left the ED. ph Signatures: Dispatcher [employer] EDAL VerduzcoWendy oneal, Reg Reg mr LawtonMinda RN RN ph Lewis, Lynsay, RN RN 1 Myesha Quiroz, MANAGER SHELL MANAGER SHELL [facility] Eva Khan RN RN kb3 Voss, Margaret, RN RN ld2 Corrections: (The following items were deleted from the chart) 12:52 12:49 BP 131 / 90; Pulse 113bpm; Resp 16bpm; Pulse Ox 100%; Temp 97.6F; Pain 9/10, ll1 Adult; ll1 15:28 15:24 HEPATIC FUNCTION+C.LAB.BRZ drawn and sent. ld2 EDMS 15:28 15:24 LIPASE+C.LAB.BRZ drawn and sent. ld2 EDMS
--- NOTE | 2024-03-06 17:03 | EDPHYS ---
Physician Documentation [facility] Name: Patito Sims Age: 38 yrs Sex: Female : 1985 Arrival Date: 03/06/2024 Time: 12:41 Bed 9 Private MD: ED Physician Rigoberto Wang HPI: 03/06 12:49 This 38 yrs old Female presents to ER via Ambulatory with complaints of Abdominal Pain. jh7 12:49 The patient presents with abdominal pain in the epigastric area, in the right upper jh7 quadrant. Onset: The symptoms/episode began/occurred 3 day(s) ago. Patient presents to the ER for ongoing epigastric pain. She was seen 2 days ago in this ER and diagnosed with gastritis. Labs and CT scan without contrast were unremarkable. The patient reports continued pain and reports that she has been unable to eat due to the pain. She was prescribed Zofran, but states that she has not experienced any nausea. Denies fever, chest pain, shortness of breath, and diarrhea.. Historical: - Allergies: 12:49 Benadryl; ll1 12:49 benitez flavor; ll1 12:49 Iodine; ll1 12:49 Latex; ll1 12:49 PENICILLINS; ll1 12:49 SHELLFISH; ll1 - PMHx: 12:49 Migraines; UTI (Migraines); ll1 - Immunization history:: Adult Immunizations up to date. - Infectious Disease History:: Denies. ROS: 12:49 Constitutional: Per HPI jh7 Exam: 12:49 Constitutional: This is a well developed, well nourished patient who is awake, alert, jh7 and in no acute distress. Head/Face: Normocephalic, atraumatic. Neck: Trachea midline, no thyromegaly or masses palpated, and no cervical lymphadenopathy. Supple, full range of motion without nuchal rigidity, or vertebral point tenderness. No Meningismus. Cardiovascular: Regular rate and rhythm with a normal S1 and S2. No gallops, murmurs, or rubs. Normal PMI, no JVD. No pulse deficits. Respiratory: Lungs have equal breath sounds bilaterally, clear to auscultation and percussion. No rales, rhonchi or wheezes noted. No increased work of breathing, no retractions or nasal flaring. Back: No spinal tenderness. No costovertebral tenderness. Full range of motion. Skin: Warm, dry with normal turgor. Normal color with no rashes, no lesions, and no evidence of cellulitis. MS/ Extremity: Pulses equal, no cyanosis. Neurovascular intact. Full, normal range of motion. Neuro: Awake and alert, GCS 15, oriented to person, place, time, and situation. Cranial nerves II-XII grossly intact. Motor strength 5/5 in all extremities. Sensory grossly intact. Cerebellar exam normal. Normal gait. 12:49 Abdomen/GI: Inspection: abdomen appears normal, Bowel sounds: normal, Palpation: soft, moderate abdominal tenderness, in the epigastric area and right upper quadrant, Vital Signs: 12:49 BP 131 / 90; Pulse 113; Resp 16; Temp 97.6; Pulse Ox 100% ; Weight 95.25 kg; Height 5 ll1 ft. 11 in. ; Pain 9/10; 15:32 BP 123 / 87; Pulse 89; Resp 18; Pulse Ox 100% on R/A; Pain 3/10; ld2 17:08 BP 126 / 84; Pulse 95; Resp 20; Pulse Ox 99% on R/A; Pain 1/10; ld2 12:49 Body Mass Index 29.29 (95.25 kg, 180.34 cm) ll1 12:49 Pain Scale: Adult ll1 15:32 Pain Scale: Adult ld2 17:08 Pain Scale: Adult ld2 Radha Coma Score: 15:32 Eye Response: spontaneous(4). Motor Response: obeys commands(6). Verbal Response: ld2 oriented(5). Total: 15. 17:08 Eye Response: spontaneous(4). Motor Response: obeys commands(6). Verbal Response: ld2 oriented(5). Total: 15. MDM: 12:46 Patient medically screened. [facility] 17:15 Differential diagnosis: appendicitis, cholecystitis, Cholelithiasis, gastritis, jh7 gastroesophageal reflux disease, Pyelonephritis. Data reviewed: vital signs, nurses notes, lab test result(s), radiologic studies, ultrasound. Consideration of Admission/Observation Patient was admitted/placed on observation. Management of patient was discussed with the following: Dr. Park, General surgery. I considered the following discharge prescriptions or medication management in the emergency department Medications were administered in the Emergency Department. See MAR. Historians other than the Patient: Spouse/Significant Other: . Counseling: I had a detailed discussion with the patient and/or guardian regarding the historical points, exam findings, and any diagnostic results supporting the discharge/admit diagnosis, the need for further work-up and treatment in the hospital. Response to treatment: the patient's symptoms have mildly improved after treatment. 03/06 13:00 Order name: BMP; Complete Time: 15:47 7 03/06 13:00 Order name: CBC with Diff; Complete Time: 15:17 jh7 03/06 14:39 Order name: Urinalysis w/ reflexes; Complete Time: 15:17 jh7 03/06 15:27 Order name: Liver (Hepatic) Function; Complete Time: 15:47 EDMS 03/06 15:27 Order name: Lipase; Complete Time: 15:47 EDMS 03/06 17:42 Order name: Urinalysis w/ reflexes EDMS 03/06 17:42 Order name: Urinalysis w/ reflexes EDMS 03/06 17:42 Order name: CBC with Automated Diff EDMS 03/06 17:42 Order name: CBC with Automated Diff EDMS 03/06 17:42 Order name: Comprehensive Metabolic Panel EDMS 03/06 17:42 Order name: Comprehensive Metabolic Panel EDMS 03/06 15:23 Order name: US Abdomen Limited; Complete Time: 16:25 jh7 Administered Medications: 14:55 Drug: NS 0.9% IV 1000 ml IV at 1 bolus Per protocol; 1000 mL bolus Route: IV; Rate: 1 ld2 bolus; Infused Over: 1 hrs; Site: right antecubital; 17:50 Follow up: IV Status: Completed infusion; IV Intake: 1000ml ld2 14:55 Drug: Famotidine IVP 20 mg IVP once; dilute with 10 mL 0.9% NaCl; give over 2 minutes ld2 Route: IVP; Infused Over: 5 mins; Site: right antecubital; 17:49 Follow up: Response: No adverse reaction; Marked relief of symptoms ld2 14:55 Drug: GI Cocktail without - (Maalox PO 30 ml, Lidocaine Mucous Membrane 2 % 15 ld2 ml) PO once Route: PO; 17:49 Follow up: Response: No adverse reaction; Marked relief of symptoms ld2 15:32 Drug: morphine IVP or IV 4 mg IVP once over 4 mins Route: IVP; Infused Over: 4 mins; ld2 Site: right antecubital; 17:48 Follow up: Response: No adverse reaction; Marked relief of symptoms ld2 15:32 Drug: Ondansetron IVP 4 mg IVP once; over 2 minutes Route: IVP; Infused Over: 2 mins; ld2 Site: right antecubital; 17:49 Follow up: Response: No adverse reaction; Marked relief of symptoms ld2 17:05 Drug: Promethazine IVP 12.5 mg IVP once Route: IVP; Infused Over: 30 mins; Site: right ld2 antecubital; 17:48 Follow up: Response: No adverse reaction; Marked relief of symptoms ld2 17:05 Drug: Ciprofloxacin IVPB 400 mg 200 ml IVPB once over 60 mins Volume: 200 ml; Route: ld2 IVPB; Infused Over: 60 mins; Site: right antecubital; 17:48 Follow up: Response: No adverse reaction; No change in condition; IV Status: Completed ld2 infusion 17:06 Drug: HYDROmorphone IVP 0.5 mg IVP once Route: IVP; Infused Over: 2 mins; Site: right ld2 antecubital; 17:48 Follow up: Response: No adverse reaction; Marked relief of symptoms ld2 17:47 Drug: metroNIDAZOLE IVPB 500 mg 100 ml IVPB at 200 ml/hr once over 30 mins Volume: 100 ld2 ml; Route: IVPB; Rate: 200 ml/hr; Infused Over: 30 mins; Site: right antecubital; Disposition: 19:39 Co-signature as Attending Physician, Rigoberto Wang MD I reviewed the patient's care rt provided by the Advanced Practice Provider and agree with the diagnosis and treatment plan. Disposition Summary: 03/06/24 17:02 Hospitalization Ordered Notes: Provider: Elkin Park Guru Condition: Stable [facility] Problem: [facility] Symptoms: are unchanged [facility] Bed/Room Type: Standard [facility] Hospitalization Status: Observation(03/06/24 17:03) [facility] Location: Telemetry/MedSurg (observation)(03/06/24 17:03) [facility] Room Assignment: 210(03/06/24 17:49) eb Diagnosis - Acute cholecystitis [facility] Forms: - Medication Reconciliation Form [facility] - SBAR form [facility] - Leadership Thank You Letter [facility] Signatures: Dispatcher [employer] EDMS Letty Huntley Lynsay, RN RN ll1 Myesha Quiroz, GLUE LINE OPERATOR GLUE LINE OPERATOR [facility] Rigoberto Wang MD MD rt Margaret Voss RN RN ld2 Corrections: (The following items were deleted from the chart) 13:00 13:00 BASIC METABOLIC PANEL+C.LAB.BRZ ordered. EDMS EDMS 13:00 13:00 CBC+H.LAB.BRZ ordered. EDMS EDMS 15:23 15:23 Abdomen Limited+US.RAD.BRZ ordered. EDMS EDMS 15:28 15:18 LIPASE+C.LAB.BRZ ordered. EDMS EDMS 15:28 15:23 HEPATIC FUNCTION+C.LAB.BRZ ordered. EDMS EDMS 17:03 17:02 Inpatient Admission [place] [id number] 17:03 17:02 Telemetry/MedSurg (Inpatient) [place] [id number] 17:03 17:02 [place] [id number] 17:49 17:03 [facility]
[2024-03-06] MEDS ORDERED: ONDANSETRON 4 MG/2 ML VIAL IV PRN (17:36)
[2024-03-06] MEDS: NA CHLORIDE 0.9% 1,000 ML IV SCH ×2 (18:00→23:48)
[2024-03-06] MEDS: MORPHINE 4 MG/ML SYR IV PRN ×2 (19:29→21:34)
[2024-03-06 20:03] VITALS: BMI 29.9
[2024-03-06] MEDS ORDERED: CIPROFLOXACIN 400mg IV 400 MG/200 ML BAG IV SCH (21:00)
[2024-03-07] MEDS: ONDANSETRON 4 MG/2 ML VIAL IV PRN (00:55)
[2024-03-07] MEDS: HYDROMORPHONE HCL 0.5 MG/0.5 ML INJ IV PRN ×2 (00:55→09:14)
[2024-03-07] MEDS: METRONIDAZOLE 500mg IVPB 500 MG/100 ML BAG IV SCH (00:55)
[2024-03-07] MEDS ORDERED: METRONIDAZOLE 500mg IVPB 500 MG/100 ML BAG IV SCH (01:00)
[2024-03-07 03:52] LABS: Absolute Lymphocytes (CBC) 0.6 K/uL (0.7-4.9); Absolute Monocytes 1.5 K/uL (0.1-1.3); Absolute Neutrophil 14.2 K/uL (1.8-8.0); Basophils % 0.1 % (0-1.3); Hemoglobin 11.7 g/dL (12.0-15.0); Lymphocytes % 3.7 % (15.3-44.8); MCH 28.7 pg (27.0-35.0); MCHC 33.5 g/dL (32.0-36.0); MCV 85.7 fL (80-100); MPV 7.8 fL (7.6-11.3); Monocytes % 8.9 % (3.3-12.3); Neutrophils % 87.3 % (41.7-73.7); Platelets 196 thou/uL (152-406); RBC Red Blood Cell Count 4.08 M/uL (3.86-4.86); Red Cell Distribution Width 13.1 % (12.1-15.2)
[2024-03-07 04:18] LABS: Albumin 2.9 g/dL (3.4-5.0); Albumin/Globulin Ratio 0.7 (1.1-1.8); Anion Gap 8.6 mEq/L (5.0-15.0); Bilirubin Total 0.5 mg/dL (0.2-1.0); Globulin 4.2 g/dL (2.3-3.5); Potassium 3.6 mEq/L (3.5-5.1); Protein, Total 7.1 g/dL (6.4-8.2)
[2024-03-07 05:17] LABS: Band Neutrophils 3 % (0-1); Blood Morphology Comment NOT SEEN (NOT SEEN); Differential Total Cells Count 100; Lymphocytes 10 % (15-42); Monocytes 6 % (0-10); Platelet Estimate ADEQ; Segmented Neutrophils 81 % (40-80)
[2024-03-07] MEDS: CIPROFLOXACIN 400mg IV 400 MG/200 ML BAG IV SCH (06:07)
[2024-03-07] MEDS ORDERED: CIPROFLOXACIN 400mg IV 400 MG/200 ML BAG IV SCH (09:00)
[2024-03-07] MEDS ORDERED: MIDAZOLAM HCL 2 MG/2 ML INJ ONE (11:09)
[2024-03-07] MEDS ORDERED: ROCURONIUM 50 MG/5 ML VIAL IV ONE (11:09)
[2024-03-07] MEDS ORDERED: NEOSTIGMINE 1 MG/ML -10 ML VIAL ONE (11:09)
[2024-03-07] MEDS ORDERED: GLYCOPYRROLATE 0.2 MG/ML SYR ONE (11:09)
[2024-03-07] MEDS ORDERED: ONDANSETRON 4 MG/2 ML VIAL ONE ×2 (11:09→12:14)
[2024-03-07] MEDS ORDERED: FENTANYL CITR 100 MCG/2 ML ONE ×2 (11:09→12:42)
[2024-03-07] MEDS ORDERED: propofoL 200 MG/20 ML VIAL IV ONE (11:09)
[2024-03-07] MEDS ORDERED: LIDOCAINE 2% MPF 5 ML VIAL ONE (11:10)
[2024-03-07 11:18] LABS: Specific Gravity 1.021 (1.005-1.030)
--- NOTE | 2024-03-07 12:21 | P.HP ---
Date of Service: 03/07/24 PC: This 38 old female presents to the emergency room with severe right upper quadrant abdominal pain for diagnosis and treatment. HPC: Patient has had this pain a couple times in the past. No she has had gallstones. Came to the emergency room for evaluation. She was discharged but has returned again complaining of similar pain. PSHx: Negative PMHx: Migraines Social Hx: Allergic to diphenhydramine, iodine, penicillins, Sys R: No cough, wheeze, shortness of breath. No chest pain or palpitations. Denies any urinary complaints O/E: Awake alert moderate discomfort HEENT: Not jaundiced Chest: Air entry equal bilaterally Abd: Mild right upper quadrant tenderness Taylor: Intact Data: Has documented gallstones Impression: Acute on chronic cholecystitis with cholelithiasis Plan: I will admit the patient to the hospital, started on antibiotics, give her IV fluids. Will take her to the operating room in the morning for laparoscopic cholecystectomy with a cholangiogram. The risks of this procedure have been discussed. The possibility of bleeding, infection, injury to bile ducts blood vessels and intestines was described. The possible need for an open and or further surgeries and procedures was discussed. She understands and wants us to proceed.
[2024-03-07] MEDS: Ringers Lactate 1,000 ML IV ONE ×2 (12:45→14:20)
[2024-03-07] MEDS ORDERED: EPHEDRINE SULF 50 MG/ML VIAL ONE (12:58)
[2024-03-07] MEDS ORDERED: MORPHINE 10 MG/ML VIAL ONE (13:02)
[2024-03-07] MEDS ORDERED: LABETALOL 20 MG/4ML SYRINGE IV ONE (14:28)
--- NOTE | 2024-03-07 14:34 | P.OP ---
Preoperative diagnosis: Acute on chronic cholecystitis with cholelithiasis Postoperative diagnosis: The same Primary procedure: Laparoscopic cholecystectomy Secondary procedure: Injection of common bile duct Anesthesia: General Estimated blood loss: Send Specimen: 1 gallbladder and contents Operative Technique: Patient brought the operating room placed supine on the table. After the induction of adequate general endotracheal anesthesia, there the abdomen was prepped with a DuraPrep solution, she was draped in the usual aseptic manner. A subumbilical incision was made. This is brought down through the skin and subcutaneous tissue. The Visiport was used to enter the peritoneal cavity and created pneumoperitoneum to approximately 12 mmHg. The patient was then placed in reverse Trendelenburg. A 5 mm trocar was placed in the upper midline, and 2 other 5 mm trocars on the right lateral side of the abdomen. On inspection of the right upper quadrant we could see that there was a marked amount of adhesions of the omentum around the gallbladder area. These were gently taken down using blunt and sharp dissection. There was an acute component but quite a thick chronic peel that had been up around the gallbladder as well. The gallbladder at this point was aspirated of its contents. We got out dark sludgy bile from the gallbladder itself. The gallbladder, now not as distended, allowed us to place a grasper on the fundus. Another was placed down by Mary's pouch. There was a marked amount of adhesions and old thick peel both acute and chronic around the area of the cystic duct and artery. This was gently dissected away using blunt and sharp dissection. The cystic duct was identified. We were able to isolated as well as the cystic artery. Clips were placed between the gallbladder and the cystic duct. The patient is allergic to iodine however I wanted to see if I could in check through the cholangiogram which is normal saline. An opening was made into the cystic duct and we were able to place a cholangiocatheter. On injection of the cystic duct we encountered absolutely no resistance. We did not advance the catheter as you could see there were marked amount of valves in the area which probably protected her common bile duct from showering from these small suspected stones. The catheter was removed. Clips were placed on the distal portion of the cystic duct. The cystic duct and artery were now transected. The gallbladder then was dissected away from the liver bed. Once again 1 could see there was a chronic component on top of acute acute component as we dissected the gallbladder out of the liver bed. The gallbladder having been detached was then placed into an Endo Catch and brought out through the umbilical trocar site it was necessary to open the fascia slightly to get this large gallbladder out not because of stones but due to the thickness of the actual tissue itself. This having been done in the umbilical trocar site was approximated with interrupted sutures of PDS placed using the Endo Close. 4 sutures were placed in toto. Good fascial closure having been obtained, the abdomen was once again inspected to ensure adequate hemostasis. Irrigating fluid was aspirated from the peritoneal cavity. We checked to ensure adequate hemostasis. This having been done, the pneumoperitoneum was collapsed, the trocars removed, and will applied to the skin. At the end of the procedure she was in a stable condition was sent to the recovery room. Needle sponge instrument count were correct. No drains were placed. Complications: None Transferred to: Recovery Room Condition: Good
[2024-03-07] MEDS: HYDROMORPHONE HCL 1 MG/ML INJ ONE (14:50)
[2024-03-07] MEDS: ONDANSETRON 4 MG/2 ML VIAL ONE (14:57)
[2024-03-07] MEDS: ONDANSETRON 4 MG/2 ML VIAL IV ONE (18:25)
[2024-03-07] MEDS: MORPHINE 4 MG/ML SYR IV PRN (22:57)
[2024-03-08] MEDS: PROMETHAZINE INJ 25 MG/ML AMP IV PRN (03:10)
[2024-03-08] MEDS: HYDROMORPHONE HCL 2 MG/ML inj IV ONE (03:37)
[2024-03-08] MEDS: HYDROCODONE/APAP 7.5/325 MG TAB PO PRN (06:50)
--- NOTE | 2024-03-08 14:16 | RAD REPORT ---
EXAM DESCRIPTION: CT - Abdomen Pelvis Wo Contrast - 03/08/2024 5:37 am CLINICAL HISTORY: Abdominal pain, recent felipe sx COMPARISON: 03/04/2024. TECHNIQUE: CT ABDOMEN PELVIS WITHOUT IV CONTRAST on 03/08/2024 3:05 AM CDT This exam was performed according to our departmental dose-optimization program, which includes autom ated exposure control, adjustment of the mA and/or kV according to patient size and/or use of iterati ve reconstruction technique. FINDINGS: There is bibasilar airspace disease. There are small bilateral pleural effusions. Abdomen: The liver is normal in appearance. There is no biliary dilatation. Cholecystectomy was perfo rmed. There is stranding in the cholecystectomy bed. The pancreas and spleen are normal in appearance . The adrenal glands and kidneys are unremarkable. Abdominal aorta is normal in course and caliber without aneurysm. There is no free air. There is no r etroperitoneal adenopathy. Pelvis: There is no bowel obstruction. Urinary bladder is unremarkable. There is small amount of free pelvic fluid. Uterus is normal in size. Appendix is not clearly seen. Skeleton: There are no acute osseous findings. No suspicious bony lesions. IMPRESSION: Pleural effusions with bibasilar presumed atelectasis. Recent postoperative changes of cholecystectomy. Electronically signed by: Gen Chapa MD 03/08/2024 05:30 AM CDT Due to temporary technical issues with the PACS/Fluency reporting system, reports are being signed by the in house radiologists without review as a courtesy to insure prompt reporting. The interpreting radiologist is fully responsible for the content of the report
--- NOTE | 2024-03-08 16:10 | P.PN ---
Date of Service: 03/08/24 S: Patient states she feels much better today. Has been taking hydrocodone which appears to have controlled her pain very effectively. Had a miserable night last night, due to her pain medicine and the fact I could not be reached due to phone issues. She however feels better today, is working hard to try and get up and ambulate, has been trying to use her incentive spirometer. Looks better than she did preoperatively. O: Vital signs are stable wounds are clean A: Clinically improved since surgery P: This patient, who had a markedly inflamed gallbladder and ensured a long surgery is feeling somewhat better today. Still not back to being independent yet. I will keep her with 1 more day to ensure clinical improvement. We will make her an inpatient.
[2024-03-08] MEDS: MINERAL OIL 30 ML UCUP PO ONE (20:22)
[2024-03-09 02:47] VITALS: O2SAT 97
--- NOTE | 2024-03-09 15:44 | P.DS ---
Admission Date: 03/08/24 Discharge Date: 03/09/24 Disposition: ROUTINE DISCHARGE Discharge Condition: GOOD Reason for Admission: Acute postoperative abdominal pain Procedures: Laparoscopic cholecystectomy Brief History of Present Illness: This patient, has been having right upper quadrant abdominal pain prior to her admission. She had been seen at various ERs in the past. This time however she said the pain was unmanageable, and was admitted after workup for acute on chronic cholecystitis with cholelithiasis, biliary colic. Hospital Course: The patient was admitted to the hospital started on antibiotics and given pain medicine. The following day she was brought to the operating room where she underwent a laparoscopic cholecystectomy. We did not do a cholangiogram due to the fact that she had an allergy to iodine, however we able to inject just with water and the feeling of the fluid going through to me I do not feel any resistance or any concerns for extrahepatic biliary tree stones. The catheter had been removed and the operation was completed. It should be noted the patient's gallbladder was extremely inflamed, it was a very difficult dissection. The following day the patient feels so much better she said her pain better managed essentially relieved. She was admitted for further IV antibiotics and pain control. We were able to get her over onto oral medication, she does not require any more antibiotics as of this point. When she will be discharged. Vital Signs/Physical Exam: Temp Pulse Resp BP Pulse Ox 99.2 F 100 H 16 120/73 93 03/09/24 12:00 03/09/24 12:00 03/09/24 12:08 03/09/24 12:00 03/09/24 12:08 Laboratory Data at Discharge: WBC 16.20 thou/uL (4.3-10.9) H 03/07/24 02:56 Hgb 11.7 g/dL (12.0-15.0) L D 03/07/24 02:56 Hct 35.0 % (36.0-45.0) L 03/07/24 02:56 Plt Count 196 thou/uL (152-406) 03/07/24 02:56 Sodium 135 mEq/L (136-145) L 03/07/24 02:56 Potassium 3.6 mEq/L (3.5-5.1) 03/07/24 02:56 BUN 7 mg/dL (7-18) 03/07/24 02:56 Creatinine 0.59 mg/dL (0.55-1.02) 03/07/24 02:56 Glucose 115 mg/dL (74-106) H 03/07/24 02:56 Total Bilirubin 0.5 mg/dL (0.2-1.0) 03/07/24 02:56 AST 10 U/L (15-37) L 03/07/24 02:56 ALT 19 U/L (13-56) 03/07/24 02:56 Alkaline Phosphatase 94 U/L (45-117) 03/07/24 02:56 Lipase Cancelled 03/06/24 15:18 Home Medications: Ashwagandha Root Extract [Ashwagandha] 1 tab PO DAILY 03/06/24 Cetirizine HCl [Zyrtec*] 1 tab PO DAILY 03/06/24 Physician Discharge Instructions: DC IV, DC home. Pain medicine as needed. Ambulated home. Continue with incentive spirometry. You may shower. Milk of magnesia, or magnesium citrate as needed. Any questions or problems, go to the emergency room, or contact me. Call my office for an appointment for next Thursday. Diet: Regular Activity: Ad rolan Followup: NONE,NONE [Primary Care Provider] -
[2024-03-09 17:50] VITALS: BP 127/82; TEMP 98.5
== END 2024-03-09 20:10 | disposition home or self-care (01) | DRG 419 ==
LOC: ER 12:41 → ERHOLD 17:33 → 2ND 18:18 → OBSVTOIN 03-08 16:10
PROVIDERS: ADMIT Surgery; ATTEND Surgery
PROC: 0FT44ZZ Resection of Gallbladder, Percutaneous Endoscopic Approach (ICD-10-PCS; principal; 2024-03-07 12:00)
DX: K81.0 Acute cholecystitis (principal); K82.A1 Gangrene of gallbladder in cholecystitis; Z88.0 Allergy status to penicillin; Z88.8 Allergy status to other drugs, medicaments and biological substances; Z91.040 Latex allergy status; Z91.013 Allergy to seafood; Z91.048 Other nonmedicinal substance allergy status; Z79.899 Other long term (current) drug therapy
CPT/HCPCS: 36415; 74176; 76705; 80048; 80053; 80076; 81001; 81025; 83690; 85025; 88304; 94010; 96361; 96365; 96375; 99285; G0378; J0744; J1170; J2001; J2250; J2405; J2550; J2704; J2710; J3010; J7030; J7120

== ENCOUNTER 2024-05-13 16:19 | Emergency (ER) | payer BC ==
[2024-05-13] MEDS ORDERED: ACETAMINOPHEN 500 MG TAB ONE (17:08)
[2024-05-13] MEDS ORDERED: KETOROLAC 30 MG/ML INJ ONE (17:08)
[2024-05-13] MEDS ORDERED: Magnesium Sulfate 2gm IVPB 2 G/50 ML BAG IV ONE (17:09)
[2024-05-13] MEDS ORDERED: NA CHLORIDE 0.9% 1,000 ML ONE (17:09)
[2024-05-13] MEDS ORDERED: LORazepam 2 MG/ML VIAL ONE (17:38)
[2024-05-13 17:57] LABS: Albumin 4.1 g/dL (3.4-5.0); Anion Gap 9.5 mEq/L (5.0-15.0); Bilirubin Total 0.4 mg/dL (0.2-1.0); Globulin 4.1 g/dL (2.3-3.5); Potassium 3.5 mEq/L (3.5-5.1); Protein, Total 8.2 g/dL (6.4-8.2)
--- NOTE | 2024-05-13 18:10 | RAD REPORT ---
EXAM DESCRIPTION: CT - Head Brain Wo Cont - 05/13/2024 5:57 pm CLINICAL HISTORY: Headache COMPARISON: none TECHNIQUE: Computed axial tomography of the head was obtained. IV contrast was not requested. All CT scans are performed using dose optimization technique as appropriate and may include automated exposure control or mA/KV adjustment according to patient size. FINDINGS: An intracranial bleed is not seen The ventricles are normal in caliber No significant hypodense areas within the brain visualized No extra-axial fluid collection is noted. Fluid within the sinuses/ mastoids is not seen IMPRESSION: No acute intracranial abnormality is seen If patient's symptoms persist MRI of the brain would be recommended
[2024-05-13 18:38] LABS: Absolute Lymphocytes (CBC) 1.9 K/uL (0.7-4.9); Absolute Monocytes 1.4 K/uL (0.1-1.3); Absolute Neutrophil 8.9 K/uL (1.8-8.0); Basophils % 0.1 % (0-1.3); Eosinophils % 0.3 % (0-4.4); Hemoglobin 13.3 g/dL (12.0-15.0); Lymphocytes % 15.8 % (15.3-44.8); MCH 28.2 pg (27.0-35.0); MCHC 33.2 g/dL (32.0-36.0); MCV 84.7 fL (80-100); MPV 7.3 fL (7.6-11.3); Monocytes % 11.2 % (3.3-12.3); Neutrophils % 72.6 % (41.7-73.7); Nucleated Red Blood Cells % 0.1 % (0-0); Platelets 293 thou/uL (152-406); RBC Red Blood Cell Count 4.73 M/uL (3.86-4.86); Red Cell Distribution Width 13.9 % (12.1-15.2)
--- NOTE | 2024-05-13 18:44 | ER ---
Nurse's Notes [facility] Name: Patito Sims Age: 38 yrs Sex: Female : 1985 Arrival Date: 05/13/2024 Time: 16:19 Bed 4 Private MD: Diagnosis: Migraine headache Presentation: 05/13 16:42 Chief complaint: Patient states: headache to top of head, pt states "It's been about 5 aa5 weeks and now it's making me dizzy". Pt also reports blurry vision and double vision. 16:42 Coronavirus screen: At this time, the client does not indicate any symptoms associated aa5 with coronavirus-19. Ebola Screen: Patient denies travel to an Ebola-affected area in the 21 days before illness onset. Initial Sepsis Screen: Does the patient meet any 2 criteria? No. Patient's initial sepsis screen is negative. Does the patient have a suspected source of infection? No. Patient's initial sepsis screen is negative. Risk Assessment: Do you want to hurt yourself or someone else? Patient reports no desire to harm self or others. Onset of symptoms was 2023. 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 - Infectious Disease History:: Denies. - Social history:: Smoking status: Patient denies any tobacco usage or history of. - Family history:: not pertinent. Screenin:53 [facility] ED Fall Risk Assessment (Adult) Intoxicated or Sedated. mb9 16:53 [facility] ED Fall Risk Assessment (Adult) History of falling in the last 3 months, mb9 including since admission No falls in past 3 months (0 pts) Confusion or Disorientation No (0 pts) Intoxicated or Sedated No (0 pts) Impaired Gait No (0 pts) Mobility Assist Device Used No (0 pt) Altered Elimination No (0 pt) Score/Fall Risk Level 0 - 2 = Low Risk Oriented to surroundings, Maintained a safe environment, Educated pt \\T\\ family on fall prevention, incl call for assistance when getting out of bed. Abuse screen: Denies threats or abuse. Nutritional screening: No deficits noted. Tuberculosis screening: No symptoms or risk factors identified. Assessment: 17:29 General: Appears in no apparent distress. Behavior is calm, cooperative. Pain: mb9 Complains of pain in head Pain does not radiate. Pain currently is 10 out of 10 on a pain scale. Quality of pain is described as throbbing, Pain began 4 weeks Is continuous. Neuro: Brower Agitation-Sedation Scale (RASS): 0 - Alert and Calm Level of Consciousness is awake, alert, obeys commands, Oriented to person, place, time, situation, Appropriate for age. Cardiovascular: Heart tones S1 S2 present Patient's skin is warm and dry. Respiratory: Airway is patent Respiratory effort is even, unlabored, Respiratory pattern is regular, symmetrical, Breath sounds are clear bilaterally. GI: Abdomen is flat, non-distended, Bowel sounds present X 4 quads. Abd is soft and non tender X 4 quads. : No signs and/or symptoms were reported regarding the genitourinary system. EENT: No signs and/or symptoms were reported regarding the EENT system. Derm: Skin is pink, warm \\T\\ dry. Musculoskeletal: Range of motion: intact in all extremities. 17:39 Reassessment: pt states, "I'm feeling anxious. I don't like all these wires and IVs mb9 being attached to me." Pt currently crying and punching her legs. ERP notified. Pt removed BP cuff and oxygen sensor. New orders at this time. 18:34 Reassessment: Patient and/or family updated on plan of care and expected duration. Pain mb9 level reassessed. Patient is alert, oriented x 3, equal unlabored respirations, skin warm/dry/pink. Patient states feeling better. Patient states symptoms have improved. Vital Signs: 16:42 BP 141 / 85; Pulse 87; Resp 18 S; Temp 97.5(TE); Pulse Ox 98% on R/A; aa5 18:42 BP 105 / 66; Pulse 69; Resp 16; Pulse Ox 100% on R/A; mb9 ED Course: 16:21 Patient arrived in ED. ts1 16:22 Rigoberto Wang MD is Attending Physician. rt 16:42 Arm band placed on. aa5 16:44 Triage completed. aa5 16:48 Wendy Barboza, RN is Primary Nurse. mb9 16:53 Placed in gown. Bed in low position. Call light in reach. Side rails up X 1. Provided mb9 Education on: press call light if needing anything. Client placed on continuous cardiac and pulse oximetry monitoring. NIBP monitoring applied. Door closed. Noise minimized. Warm blanket given. Pillow given. 17:15 Initial lab(s) drawn, by me, sent to lab. EKG done, by ED staff, reviewed by Rigoberto Wang MD. Inserted saline lock: 20 gauge in right antecubital area, using aseptic technique. Blood collected. 17:28 CMP Sent. mb9 17:28 CBC with Diff Sent. mb9 17:30 Thermoregulation: warm blanket given to patient. mb9 17:31 No provider procedures requiring assistance completed. mb9 17:59 CT Head Brain wo Cont In Process Unspecified. EDMS 18:50 IV discontinued, intact, bleeding controlled, No redness/swelling at site. Pressure mb9 dressing applied. Administered Medications: 17:20 Drug: Droperidol IVP 1.25 mg IVP once Route: IVP; Site: right antecubital; mb9 18:36 Follow up: Response: No adverse reaction mb9 17:20 Drug: NS 0.9% IV 1000 ml IV at 1 bolus Per protocol; 1000 mL bolus Route: IV; Rate: 1 mb9 bolus; Site: right antecubital; 18:37 Follow up: Response: No adverse reaction; IV Status: Completed infusion mb9 17:22 Drug: Ketorolac IVP 15 mg IVP once Route: IVP; Site: right antecubital; mb9 18:37 Follow up: Response: No adverse reaction mb9 17:25 Drug: Acetaminophen PO 1000 mg PO once Route: PO; mb9 18:36 Follow up: Response: No adverse reaction mb9 17:29 Drug: Magnesium Sulfate IVPB 2 grams IVPB once over 2 hrs Route: IVPB; Infused Over: 2 mb9 hrs; Site: right antecubital; 17:43 Drug: Ativan IVP 1 mg IVP once Route: IVP; Site: right antecubital; mb9 18:36 Follow up: Response: No adverse reaction mb9 Medication: 16:54 VIS not applicable for this client. mb9 Outcome: 18:44 Discharge ordered by . rt 18:50 Discharged to home ambulatory, with family, ander 18:50 Condition: stable 18:50 Discharge instructions given to patient, Instructed on discharge instructions, follow up and referral plans. Demonstrated understanding of instructions, follow-up care, medications, Prescriptions given X 1, 18:51 Patient left the ED. mb9 Signatures: Dispatcher [employer] EDMS Kyleigh Baig RN RN aa5 Wendy Barboza RN RN mb9 Rigoberto Wang MD MD rt Raissa Thomson PAS PAS ts1 Corrections: (The following items were deleted from the chart) 18:34 17:39 Reassessment: pt states, "I'm feeling anxious. I don't like all these wires and mb9 IVs being attached to me." Pt currently crying and punching her legs. ERP notified. New orders at this time. mb9
--- NOTE | 2024-05-13 18:44 | EDPHYS ---
Physician Documentation [facility] Name: Patito Sims Age: 38 yrs Sex: Female : 1985 Arrival Date: 05/13/2024 Time: 16:19 Bed 4 Private MD: ED Physician Rigoberto Wang HPI: 05/13 17:22 This 38 yrs old Female presents to ER via Ambulatory with complaints of Migraines. rt 17:22 Patient with history of migraines presents to the ED with migraine has been present for rt about 5 weeks. This is lasting longer duration compared to prior headaches. Reports pain to the top of her head, radiating posteriorly. Patient reports having blurred, double vision as well as light and sound sensitivity. Patient went to the ER, was given Reglan with some relief of symptoms prescribed. At that did not improve her symptoms acute complaints at this time, symptoms are moderate in severity, no other aggravating alleviating factors. 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 - Infectious Disease History:: Denies. - Social history:: Smoking status: Patient denies any tobacco usage or history of. - Family history:: not pertinent. ROS: 17:22 Constitutional: Negative for fever, chills, and weight loss, Cardiovascular: Negative rt for chest pain, palpitations, and edema, Respiratory: Negative for shortness of breath, cough, wheezing, and pleuritic chest pain, Abdomen/GI: Negative for abdominal pain, nausea, vomiting, diarrhea, and constipation, Skin: Negative for injury, rash, and discoloration, 17:22 Eyes: Positive for photophobia, visual disturbance, 17:22 Neuro: Positive for dizziness, headache, Exam: 17:22 Constitutional: This is a well developed, well nourished patient who is awake, alert, rt and in no acute distress. Head/Face: Normocephalic, atraumatic. Chest/axilla: Normal chest wall appearance and motion. Nontender with no deformity. No lesions are appreciated. Cardiovascular: Regular rate and rhythm with a normal S1 and S2. No gallops, murmurs, or rubs. Normal PMI, no JVD. No pulse deficits. Respiratory: Lungs have equal breath sounds bilaterally, clear to auscultation and percussion. No rales, rhonchi or wheezes noted. No increased work of breathing, no retractions or nasal flaring. Abdomen/GI: Soft, non-tender, with normal bowel sounds. No distension or tympany. No guarding or rebound. No evidence of tenderness throughout. Skin: Warm, dry with normal turgor. Normal color with no rashes, no lesions, and no evidence of cellulitis. MS/ Extremity: Pulses equal, no cyanosis. Neurovascular intact. Full, normal range of motion. 17:22 Eyes: Extraocular muscles intact. 17:22 ECG was reviewed by the Attending Physician. 17:22 Neuro: Cranial nerves II through XII intact, strength and sensation intact in upper and lower extremities, Vital Signs: 16:42 BP 141 / 85; Pulse 87; Resp 18 S; Temp 97.5(TE); Pulse Ox 98% on R/A; aa5 18:42 BP 105 / 66; Pulse 69; Resp 16; Pulse Ox 100% on R/A; mb9 MDM: 16:50 Patient medically screened. rt 18:46 Differential Diagnosis Migraine, tumor, intracranial hemorrhage. Data reviewed: vital rt signs, nurses notes, lab test result(s), EKG, radiologic studies. Consideration of Admission/Observation Escalation of care including admission/observation considered. Symptoms are improving, CT scan is unremarkable, labs are benign, no indications for admission at this time. I considered the following discharge prescriptions or medication management in the emergency department Medications were administered in the Emergency Department. See MAR. Independent interpretation of the following test(s) in the Emergency Department CT Scan: My interpretation is No intracranial hemorrhage seen on interpretation of CT scan images. Care significantly affected by the following chronic conditions: Migraine headache. Counseling: I had a detailed discussion with the patient and/or guardian regarding the historical points, exam findings, and any diagnostic results supporting the discharge/admit diagnosis, lab results, radiology results, the need for outpatient follow up, to return to the emergency department if symptoms worsen or persist or if there are any questions or concerns that arise at home. Response to treatment: the patient's symptoms have markedly improved after treatment. 05/13 17:04 Order name: CBC with Diff; Complete Time: 18:39 rt 05/13 17:04 Order name: CMP; Complete Time: 18:11 rt 05/13 17:04 Order name: CT Head Brain wo Cont; Complete Time: 18:11 rt 05/13 17:04 Order name: EKG; Complete Time: 17:05 rt 05/13 17:04 Order name: EKG - Nurse/Tech; Complete Time: 17:28 rt EC: Rate is 71 beats/min. Rhythm is regular, Normal Sinus Rhythm with No ectopy. QRS [place] rt is Normal. HI interval is normal. QRS interval is normal. QT interval is normal. No Q waves. T waves are Normal. No ST changes noted. Interpreted by me. Administered Medications: 17:20 Drug: Droperidol IVP 1.25 mg IVP once Route: IVP; Site: right antecubital; mb9 18:36 Follow up: Response: No adverse reaction mb9 17:20 Drug: NS 0.9% IV 1000 ml IV at 1 bolus Per protocol; 1000 mL bolus Route: IV; Rate: 1 mb9 bolus; Site: right antecubital; 18:37 Follow up: Response: No adverse reaction; IV Status: Completed infusion mb9 17:22 Drug: Ketorolac IVP 15 mg IVP once Route: IVP; Site: right antecubital; mb9 18:37 Follow up: Response: No adverse reaction mb9 17:25 Drug: Acetaminophen PO 1000 mg PO once Route: PO; mb9 18:36 Follow up: Response: No adverse reaction mb9 17:29 Drug: Magnesium Sulfate IVPB 2 grams IVPB once over 2 hrs Route: IVPB; Infused Over: 2 mb9 hrs; Site: right antecubital; 17:43 Drug: Ativan IVP 1 mg IVP once Route: IVP; Site: right antecubital; mb9 18:36 Follow up: Response: No adverse reaction mb9 Disposition Summary: 05/13/24 18:44 Discharge Ordered Notes: Location: Home rt Problem: an ongoing problem rt Symptoms: have improved rt Condition: Stable rt Diagnosis - Migraine headache rt Followup: rt - With: Private Physician - When: 2 - 3 days - Reason: Discharge Instructions: - Discharge Summary Sheet rt - Migraine Headache rt Forms: - Medication Reconciliation Form rt - Antibiotic Education rt - Prescription Opioid Use rt - Patient Portal Instructions rt - Leadership Thank You Letter rt Prescriptions: - Imitrex 25 mg Oral Tablet - take 1 tablet ORAL route one time - x 1 dose with fluids as early as possible rt after the onset of a migraine attack; if headache returns, the dose may be repeated after 2 hours, not to exceed a total daily dose of 8 tablets; 12 tablet; Refills: 0, Product Selection Permitted Signatures: Dispatcher [employer] EDMS Kyleigh Baig RN RN aa5 Wendy Barboza RN RN mb9 Rigoberto Wang MD MD rt Corrections: (The following items were deleted from the chart) 17:05 17:05 CBC+H.LAB.BRZ ordered. EDMS EDMS 17:05 17:05 COMPREHENSIVE METABOLIC PANEL+C.LAB.BRZ ordered. EDMS EDMS
[2024-05-13 19:17] VITALS: BP 105/66; TEMP 97.5; O2SAT 100
--- NOTE | 2024-05-16 14:22 | EKG ---
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
== END 2024-05-13 18:51 | disposition home or self-care (01) ==
LOC: ER 16:19
DX: G43.909 Migraine, unspecified, not intractable, without status migrainosus (principal); Z88.0 Allergy status to penicillin; Z88.8 Allergy status to other drugs, medicaments and biological substances; Z91.02 Food additives allergy status; Z91.013 Allergy to seafood; Z91.040 Latex allergy status
CPT/HCPCS: 96361; 85025; 36415; 80053; 70450; 96375; 96374; 99285; J3475; J7030; 93005

== ENCOUNTER 2024-12-23 22:24 | Emergency (ER) | payer BC ==
[2024-12-24 00:15] LABS: Specific Gravity 1.016 (1.005-1.030)
[2024-12-24 00:16] LABS: Specific Gravity 1.016 (1.005-1.030); Sqamous Epithelial <5 /HPF (None Seen); Urine Bacteria None Seen /HPF (<20); Urine Bilirubin NEGATIVE (Negative); Urine Blood 1+ (Negative); Urine Clarity Clear (Clear); Urine Color Light-Yellow (Yellow); Urine Culture Reflex Order NOT NEEDED; Urine Glucose NEGATIVE (Negative); Urine Ketones NEGATIVE (Negative); Urine Microscopic Reflex YN ORDER UMIC; Urine Mucus Slight /HPF (None Seen); Urine Nitrite NEGATIVE (Negative); Urine Protein NEGATIVE (Negative); Urine Urobilinogen Normal (Normal); Urine WBC <5 /HPF (<5); Urine pH 6.5 (5.0-7.0)
[2024-12-24 00:20] LABS: Absolute Eosinophils 0.3 K/uL (0-0.5); Absolute Lymphocytes (CBC) 2.3 K/uL (0.7-4.9); Absolute Monocytes 0.7 K/uL (0.1-1.3); Absolute Neutrophil 3.7 K/uL (1.8-8.0); Basophils % 0.4 % (0-1.3); Eosinophils % 4.8 % (0-4.4); Hemoglobin 13.6 g/dL (12.0-15.0); Lymphocytes % 32.3 % (15.3-44.8); MCH 29.3 pg (27.0-35.0); MCV 86.1 fL (80-100); MPV 7.5 fL (7.6-11.3); Monocytes % 10.1 % (3.3-12.3); Neutrophils % 52.4 % (41.7-73.7); Platelets 219 thou/uL (152-406); RBC Red Blood Cell Count 4.64 M/uL (3.86-4.86); Red Cell Distribution Width 12.9 % (12.1-15.2)
[2024-12-24 00:32] LABS: Albumin 3.2 g/dL (3.4-5.0); Albumin/Globulin Ratio 0.8 (1.1-1.8); Anion Gap 6.9 mEq/L (5.0-15.0); Bilirubin Total 0.2 mg/dL (0.2-1.0); Globulin 4.2 g/dL (2.3-3.5); Potassium 3.9 mEq/L (3.5-5.1); Protein, Total 7.4 g/dL (6.4-8.2)
[2024-12-24] MEDS ORDERED: ONDANSETRON 4 MG/2 ML VIAL ONE (01:43)
[2024-12-24] MEDS ORDERED: SUMATRIPTAN SUCC 6MG/0.5ML VIAL SQ ONE (02:34)
--- NOTE | 2024-12-24 02:44 | RAD REPORT ---
CT ABDOMEN PELVIS WITHOUT IV CONTRAST CLINICAL INDICATION: Abdominal pain COMPARISON: CT abdomen and pelvis 03/08/2024 TECHNIQUE: CT images of the abdomen and pelvis obtained without contrast. Multiplanar reformats were provided. Dose-optimization techniques such as automated exposure control, iterative reconstruction, and mA and/or kV adjustment for patient size was utilized for this examination. FINDINGS: LOWER CHEST: Unremarkable. LIVER: Unremarkable. BILIARY: Status post cholecystectomy with surgical clips at gallbladder fossa. No intra- or extrahepa tic biliary ductal dilatation. PANCREAS: Unremarkable. SPLEEN: Unremarkable. ADRENALS: Unremarkable. KIDNEYS/URETERS: Unremarkable. STOMACH: Unremarkable. BOWEL: Unremarkable. APPENDIX: Normal. MESENTERY/PERITONEUM: Unremarkable. RETROPERITONEUM: No adenopathy. URINARY BLADDER: Unremarkable. REPRODUCTIVE: Unremarkable. VASCULAR: Unremarkable. ABDOMINAL/PELVIC WALL: Unremarkable. BONES: No acute findings. 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 This is exac erbated by superimposed disc degenerative changes and facet arthropathy, worst at L3-4 and L4-5 levels with moderate central canal stenosis. IMPRESSION: 1. No acute inflammatory changes in the abdomen and pelvis. 2. Congenital lumbar canal narrowing exacerbated by superimposed disc degenerative changes and face t arthropathy, worst at L3-4 and L4-5 levels with moderate central canal stenosis. Electronically signed by: Virgen Saavedra MD 12/24/2024 02:[address] [facility] Due to temporary technical issues with the PACS/[employer] reporting system, reports are being hugo d by the in-house radiologist without review as a courtesy to ensure prompt reporting the interpreting radiologist is fully responsible for the content of the report. Transcribed Date/Time: 12/24/2024 2:44 AM
--- NOTE | 2024-12-24 03:03 | ER ---
Nurse's Notes [facility] Name: Patito Sims Age: 39 yrs Sex: Female : 1985 Arrival Date: 12/23/2024 Time: 22:24 Bed 8 Private MD: Diagnosis: Abdominal pain, unspecified Presentation: 12/23 23:14 Chief complaint: Patient states: ABDOMINAL PAIN, DIARRHEA FOR 3 WEEKS, SUDDEN ONSET OF br2 LEFT MID BACK PAIN THAT RADIATES TO LUQ.....HAS GAINED WEIGHT IN ONE MONTH....UP 4 PANTS SIZES, DOESN'T KNOW EXACT POUNDS GAINED. DR SORTO AT BEDSIDE PT REFUSING PAIN OR NAUSEA MEDS AT THIS TIME. Coronavirus screen: Client denies travel out of the [place] in the last 14 days. Ebola Screen: Patient denies exposure to infectious person. Initial Sepsis Screen: Does the patient meet any 2 criteria? No. Patient's initial sepsis screen is negative. Does the patient have a suspected source of infection? No. Patient's initial sepsis screen is negative. Risk Assessment: Do you want to hurt yourself or someone else? Patient reports no desire to harm self or others. Onset of symptoms was December 23, 2024 at 21:30. 23:14 Method Of Arrival: Ambulatory br2 23:14 Acuity: RYLEY 3 br2 Triage Assessment: 23:26 General: Appears uncomfortable, Behavior is calm, cooperative. Pain: Complains of pain br2 in left mid back Pain radiates to left upper quadrant and left lower quadrant Pain currently is 6 out of 10 on a pain scale. Quality of pain is described as pressure, sharp, stabbing. Musculoskeletal: Capillary refill < 3 seconds, Range of motion: intact in all extremities. Historical: - Allergies: 23:24 Benadryl; br2 23:24 Iodine; br2 23:24 PENICILLINS; br2 23:24 SHELLFISH; br2 23:24 Latex; br2 23:24 benitez flavor; br2 - PMHx: 23:24 Migraines; UTI (Unknown); br2 - PSHx: 23:24 Cholecystectomy; br2 - Immunization history:: Adult Immunizations not up to date. - Infectious Disease History:: Denies. - Social history:: Smoking status: Patient/guardian denies using tobacco, Patient uses alcohol, but reports only rare drinking. street drugs, THC. Screenin/08 01:20 [facility] ED Fall Risk Assessment (Adult) History of falling in the last 3 months, ha1 including since admission No falls in past 3 months (0 pts) Confusion or Disorientation No (0 pts) Intoxicated or Sedated No (0 pts) Impaired Gait No (0 pts) Mobility Assist Device Used No (0 pt) Altered Elimination No (0 pt) Score/Fall Risk Level 0 - 2 = Low Risk Oriented to surroundings, Maintained a safe environment, Educated pt \\T\\ family on fall prevention, incl call for assistance when getting out of bed, Hourly rounding (assess needs \\T\\ fall precautionary measures) done. Abuse screen: Denies threats or abuse. Denies injuries from another. Nutritional screening: No deficits noted. Tuberculosis screening: No symptoms or risk factors identified. Assessment: 01:10 General: Appears comfortable, Behavior is calm, cooperative. Pain: Complains of pain in ha1 abdomen Pain does not radiate. Pain currently is 7 out of 10 on a pain scale. Quality of pain is described as aching. Neuro: Level of Consciousness is awake, alert, obeys commands, Oriented to person, place, time, situation. Cardiovascular: Capillary refill < 3 seconds Patient's skin is warm and dry. Respiratory: Airway is patent Respiratory effort is even, unlabored, Respiratory pattern is regular, symmetrical. GI: Abdomen is round non-distended, Bowel sounds present X 4 quads. Reports lower abdominal pain, upper abdominal pain, nausea, vomiting. Derm: Skin is pink, warm \\T\\ dry. Musculoskeletal: Circulation, motion, and sensation intact. Range of motion: intact in all extremities. 02:10 Reassessment: Patient and/or family updated on plan of care and expected duration. Pain ha1 level reassessed. Patient is alert, oriented x 3, equal unlabored respirations, skin warm/dry/pink. 03:00 Reassessment: PT ATTEMPTING TO LEAVE ER WITH IV STILL IN PLACE. I INFORMED PT SHE CAN jj7 NOT LEAVE WITH IV. PT LIES AND STATES IF THAT'S THE CASE THEN THE IV HAS BEEN REMOVED. PT STILL TRYING TO WALK OUT WITH IV. I FIRMLY TOLD HER SHE CAN NOT LEAVE WITH THE IV. MAURICIO RN COMES TO ASSIST AND INFORMS THE PT WELL THAT SHE CAN NOT LEAVE WITH THE IV. PT STATES IS THERE A LAW THAT SAYS SHE CAN NOT LEAVE WITH THE IV. MAURICIO RN STATES IF SHE LEAVES WE WILL CALL THE POLICE. PT GOES BACK INTO. PT IS STATING SHE IS IN PAIN AND THE DR TOLD HER NOTHING IS WRONG WITH HER WHEN SHE IS IN PAIN. I STATED TO THE PT. THE DR OFFERED HER PAIN MEDS AND SHE REFUSED. PT STATES SHE IS NOT UPSET WITH ME BUT SHE HAS BEEN HAVING THIS ABD PAIN FOR OVER A YEAR. I INFORMED HER IN THE ER WE R/O EMERGENCIES AND THE DR DID THAT. HE TREATED HER HEADACHE AND OFFERED PAINS MEDS WHICH SHE REFUSED. SHE CAN F/U WITH A GI DOCTOR TO FURTHER INVESTIGATE HER ABD PAIN. PT STATES SHE WANTS THE HOUSE SUPERVISORS PHONE NUMBER AND SHE WILL EVIN THIS WHOLE HOSPITAL. IV REMOVED. PT REFUSED TO SIGN DISCHARGE PAPERS AND STATES SHE WILL STAY IN THE FRONT UNTIL HER PAIN GETS WORSE AND CHECK BACK IN. PT INFORMED SHE IS MORE THAN WELCOME TO CHECK BACK IN. 03:01 General: ATTEMPTING TO LEAVE WITH IV IN PLACE. PROVIDED EDUCATION ABOUT NEED TO REMOVE ha1 IV. PATIENT STATES " THERE IS NO LAW THAT SAYS THAT YOU NEED TO REMOVE MY IV." INFORMED PATIENT IF SHE LEAVES WITH THE IV IN PLACE WE WILL NOTIFY POLICE. . Vital Signs: 12/23 23:14 BP 129 / 99; Pulse 85; Resp 18; Temp 98(O); Pulse Ox 99% on R/A; Weight 91.63 kg; br2 Height 5 ft. 10 in. ; Pain 6/10; 12/24 01:10 BP 130 / 92; Pulse 82; Resp 17 S; Temp 97.9(T); Pulse Ox 100% on R/A; ha1 02:10 BP 154 / 79; Pulse 81; Resp 17 S; Pulse Ox 100% on R/A; ha1 03:15 BP 120 / 92; Pulse 90; Resp 17; Pulse Ox 97% ; jj7 12/23 23:14 Body Mass Index 28.98 (91.63 kg, 177.8 cm) br2 12/23 23:14 Pain Scale: Adult br2 ED Course: 12/23 22:28 Patient arrived in ED. gm2 23:09 Arm band placed on right wrist. ha1 23:10 Rigoberto Sorto MD is Attending Physician. rt 23:13 Melinda Maldonado, RN is Primary Nurse. br2 23:24 Triage completed. br2 0208 01:08 Abdomen In Process Unspecified. EDMS 01:10 Inserted saline lock: 20 gauge in left antecubital area, using aseptic technique. Blood ha1 collected. Flushed with 10 mL NS. 01:10 Patient has correct armband on for positive identification. Bed in low position. Call ha1 light in reach. Side rails up X 1. Adult w/ patient. 01:10 Provided Education on: plan of care . Client placed on continuous cardiac and pulse ha1 oximetry monitoring. NIBP monitoring applied. 03:00 No provider procedures requiring assistance completed. IV discontinued, intact, jj7 bleeding controlled, No redness/swelling at site. Pressure dressing applied. Administered Medications: 02:00 Drug: Ondansetron IVP 4 mg IVP once; over 2 minutes Route: IVP; Site: left antecubital; ha1 03:26 Follow up: Response: Nausea is decreased jj7 02:35 Drug: SUMAtriptan Sub-Q 6 mg Sub-Q once Route: Sub-Q; Site: left upper arm; jj7 03:26 Follow up: Response: Marked relief of symptoms; Pain is decreased jj7 Medication: 02:05 VIS not applicable for this client. ha1 Outcome: 03:00 Discharged to home ambulatory, with family, azeem 03:00 Condition: good 03:00 Discharge instructions given to PT REFUSED TO SIGN AND TAKE DISCHARGE PAPERS 03:02 Discharge ordered by MD. rt 03:05 Patient left the ED. jj7 Signatures: Dispatcher [employer] EDKS Mauricio Zhou RN RN ha1 Robe Laureano RN RN jj7 Rigoberto Sorto MD MD rt Lucy Knutson gm2 Melinda Maldonado, DEBBIE RN br2 Corrections: (The following items were deleted from the chart) 02:47 02:45 SUMAtriptan Sub-Q 6 mg Sub-Q in left upper arm [email or web address] jj7 03:32 02/07 23:14 Chief complaint: Patient states: ABDOMINAL PAIN, DIARRHEA FOR 3 WEEKS, br2 SUDDEN ONSET OF LEFT MID BACK PAIN THAT RADIATES TO LUQ.....HAS GAINED WEIGHT IN ONE MONTH....UP 4 PANTS SIZES, DOESN'T KNOW EXACT POUNDS GAINED. br2 12/24 03:40 03:40 Patient left the ED. jj7 jj7
--- NOTE | 2024-12-24 03:03 | EDPHYS ---
Physician Documentation [facility] Name: Patito Sims Age: 39 yrs Sex: Female : 1985 Arrival Date: 12/23/2024 Time: 22:24 Bed 8 Private MD: ED Physician Rigoberto Wang HPI: 12/24 04:02 This 39 yrs old Female presents to ER via Ambulatory with complaints of Arm Pain, Back rt Pain, Abdominal Pain, Nausea/Vomiting. 04:02 Patient presents to the ED with about 3 weeks of diarrhea. Patient states that she rt often has episodes of constipation requiring cleanout. States that the symptoms have worsened today with pain to the left upper quadrant rating to the back. Also reports that she has had an unintentional weight gain, has increased her pant sizes. Patient does not have much weight she has gained. She reports having a headache consistent with known migraine disorder. Denies other acute complaints at this time, symptoms are moderate in severity, no other aggravating or alleviating factors.. Historical: - Allergies: 12/23 23:24 Benadryl; br2 23:24 Iodine; br2 23:24 PENICILLINS; br2 23:24 SHELLFISH; br2 23:24 Latex; br2 23:24 benitez flavor; br2 - PMHx: 23:24 Migraines; UTI (Unknown); br2 - PSHx: 23:24 Cholecystectomy; br2 - Immunization history:: Adult Immunizations not up to date. - Infectious Disease History:: Denies. - Social history:: Smoking status: Patient/guardian denies using tobacco, Patient uses alcohol, but reports only rare drinking. street drugs, THC. ROS: 12/24 04:04 Neuro: Positive for rt 05:17 Constitutional: Negative for fever, chills, and weight loss, Cardiovascular: Negative rt for chest pain, palpitations, and edema, Respiratory: Negative for shortness of breath, cough, wheezing, and pleuritic chest pain, MS/Extremity: Negative for injury and deformity, Skin: Negative for injury, rash, and discoloration, 05:17 Abdomen/GI: Positive for abdominal pain, nausea, 05:17 Neuro: Positive for headache, Negative for loss of consciousness, Exam: 05:17 Constitutional: This is a well developed, well nourished patient who is awake, alert, rt and in no acute distress. Head/Face: Normocephalic, atraumatic. Chest/axilla: Normal chest wall appearance and motion. Nontender with no deformity. No lesions are appreciated. Cardiovascular: Regular rate and rhythm with a normal S1 and S2. No gallops, murmurs, or rubs. Normal PMI, no JVD. No pulse deficits. Respiratory: Lungs have equal breath sounds bilaterally, clear to auscultation and percussion. No rales, rhonchi or wheezes noted. No increased work of breathing, no retractions or nasal flaring. Skin: Warm, dry with normal turgor. Normal color with no rashes, no lesions, and no evidence of cellulitis. MS/ Extremity: Pulses equal, no cyanosis. Neurovascular intact. Full, normal range of motion. Neuro: Awake and alert, GCS 15, oriented to person, place, time, and situation. Cranial nerves II-XII grossly intact. Motor strength 5/5 in all extremities. Sensory grossly intact. Cerebellar exam normal. Normal gait. 05:17 Abdomen/GI: Mild tenderness diffusely without rebound, guarding, distention, Vital Signs: 12/23 23:14 BP 129 / 99; Pulse 85; Resp 18; Temp 98(O); Pulse Ox 99% on R/A; Weight 91.63 kg; br2 Height 5 ft. 10 in. ; Pain 6/10; 12/24 01:10 BP 130 / 92; Pulse 82; Resp 17 S; Temp 97.9(T); Pulse Ox 100% on R/A; ha1 02:10 BP 154 / 79; Pulse 81; Resp 17 S; Pulse Ox 100% on R/A; ha1 03:15 BP 120 / 92; Pulse 90; Resp 17; Pulse Ox 97% ; jj7 12/23 23:14 Body Mass Index 28.98 (91.63 kg, 177.8 cm) br2 12/23 23:14 Pain Scale: Adult br2 MDM: 12/23 23:22 Medical Screening Exam initiated rt 12/24 05:17 Differential diagnosis: No obstruction, biliary leak, diverticulitis, pancreatitis, rt nonspecific abdominal pain. Data reviewed: vital signs, nurses notes, lab test result(s), radiologic studies. I considered the following discharge prescriptions or medication management in the emergency department Medications were administered in the Emergency Department. See MAR. Independent interpretation of the following test(s) in the Emergency Department CT Scan: My interpretation is No bowel obstruction seen on my interpretation of CT scan images. Test considered but Not performed: CT: Chronic migraine headaches, no change in character, CT scan of the head is not indicated. Counseling: I had a detailed discussion with the patient and/or guardian regarding the historical points, exam findings, and any diagnostic results supporting the discharge/admit diagnosis, lab results, radiology results, the need for outpatient follow up. ED course: Initial valuation of the patient, she declined the need for pain, nausea medicines. Later, she only requested to have headache medicines which were given to her which did improve her headache. Went to reassess the patient and tell her the negative results of the x-ray, she became upset about her abdominal pain, again, declined medicines and then immediately demanded to leave. At this time, she is stable for discharge, was instructed to follow-up with her civil engineering draftsperson as an outpatient.. 12/23 23:23 Order name: CBC with Diff; Complete Time: 00:33 rt 12/23 23:23 Order name: CMP; Complete Time: 00:33 rt 12/23 23:23 Order name: Lipase; Complete Time: 00:33 rt 12/23 23:23 Order name: Test, Urine; Complete Time: 00:33 rt 12/23 23:23 Order name: Urinalysis w/ reflexes; Complete Time: 00:33 rt 12/24 00:55 Order name: Abdomen EDMS 12/23 23:23 Order name: IV Saline Lock; Complete Time: 01:30 rt 12/23 23:23 Order name: Labs collected and sent; Complete Time: 01:30 rt Administered Medications: 02:00 Drug: Ondansetron IVP 4 mg IVP once; over 2 minutes Route: IVP; Site: left antecubital; ha1 03:26 Follow up: Response: Nausea is decreased jj7 02:35 Drug: SUMAtriptan Sub-Q 6 mg Sub-Q once Route: Sub-Q; Site: left upper arm; jj7 03:26 Follow up: Response: Marked relief of symptoms; Pain is decreased jj7 Disposition Summary: 12/24/24 03:02 Discharge Ordered Notes: Location: Home rt Problem: an ongoing problem rt Symptoms: are unchanged rt Condition: Stable rt Diagnosis - Abdominal pain, unspecified rt Followup: rt - With: Private Physician - When: 2 - 3 days - Reason: Discharge Instructions: - Discharge Summary Sheet rt - Abdominal Pain, Adult rt Forms: - Medication Reconciliation Form rt - Antibiotic Education rt - Prescription Opioid Use rt - Patient Portal Instructions rt - Leadership Thank You Letter rt Signatures: Dispatcher [employer] Mary Horne RN RN ha1 Robe Laureano RN RN jj7 Rigoberto Wang MD MD rt Melinda Maldonado RN RN br2 Corrections: (The following items were deleted from the chart) 00:55 12/23 23:23 Abdomen Pelvis W Con+CT.RAD.BRZ ordered. [facility]
[2024-12-24 03:45] VITALS: TEMP 97.9
[2024-12-24 03:48] VITALS: BP 120/92; O2SAT 97
== END 2024-12-24 03:40 | disposition home or self-care (01) ==
LOC: ER 22:24
DX: R10.12 Left upper quadrant pain (principal); R51.9 Headache, unspecified; R19.7 Diarrhea, unspecified
CPT/HCPCS: 85025; 81001; 36415; 81025; 83690; 80053; 74176; 96372; 96374; 99284; J3030; J2405